=== PATIENT | female | born 1945 | race Caucasian/White ===

== ENCOUNTER 2016-05-31 20:16 | Emergency (ER) | payer BC, MEDICARE ==
[2016-05-31 21:41] LABS: Basophils % (Auto) 0.1 % (0.0-1.8); Eosinophils % (Auto) 0.3 % (0.0-4.3); Hematocrit 38.9 % (30.3-42.9); Hemoglobin 12.9 gm/dl (10.1-14.3); Mean Corpuscular HGB Conc 33 % (30-34); Mean Corpuscular Hemoglobin 30 pg (28-32); Mean Corpuscular Volume 89 fl (79-97); Platelet Count 256 K/mm3 (140-440); Red Blood Count 4.37 M/mm3 (3.65-5.03); Red Cell Distribution Width 12.9 % (13.2-15.2); White Blood Count 13.8 K/mm3 (4.5-11.0)
[2016-05-31 21:46] LABS: Alanine Aminotransferase 15 units/L (7-56); Albumin 4.5 g/dL (3.9-5); Albumin/Globulin Ratio 1.5 %; Alkaline Phosphatase 111 units/L (35-129); Anion Gap 20 mmol/L; Bilirubin,Total 0.5 mg/dL (0.1-1.2); Blood Urea Nitrogen 8 mg/dL (7-17); Calcium 9.1 mg/dL (8.4-10.2); Carbon Dioxide 25 mmol/L (22-30); Chloride 101.8 mmol/L (98-107); Glucose 155 mg/dL (65-100); Lipase 39 units/L (13-60); Potassium 3.4 mmol/L (3.6-5.0); Sodium 143 mmol/L (137-145); Total Protein 7.5 g/dL (6.3-8.2)
[2016-05-31 23:11] LABS: Bilirubin,Urine NEG (Negative); Blood,Urine LG (Negative); Ketones,Urine NEG (Negative); Leukocyte Esterase,Urine LG (Negative); Nitrite,Urine NEG (Negative); Urobilinogen,Urine < 2.0 mg/dL (<2.0)
[2016-05-31 23:14] LABS: RBC,Urine > 182.0 /HPF (0.0-6.0); WBC,Urine > 182.0 /HPF (0.0-6.0)
[2016-06-01] MEDS ORDERED: NACL 0.9% 1000 ML IV ONE (10:29)
[2016-06-01] MEDS ORDERED: ROCEPHIN/NS 1 GM/50 ML 50 ML IV ONE (10:29)
--- NOTE | 2016-06-01 10:34 | Emergency Department Report ---
HPI - General Chief Complaint: Abdominal Pain Time Seen by Provider: 06/01/16 10:20 - HPI HPI: Chief complaint: Dysuria, hematuria, frequency urgency HPI: Patient is a healthy 71-year-old [place] female states she began having dysuria and hematuria last night. Patient then states she felt hot and cold and had some suprapubic pain. Patient has some mild back pain diffuse. No flank pain. Patient denies any nausea or vomiting and currently has no abdominal pain. Mode of arrival: Private car Source: Patient and family member Began: Last night Duration: Continuous Context: No previous history of urinary tract infection Quality: Burning Severity: 4 out of 10 Improved with: Nothing Worsened with: Urination increases pain Associated signs and symptoms: See above ED Past Medical Hx - Medications Home Medications: Home Medications Medication Instructions Recorded Confirmed Last Taken Type Phenazopyridine [Pyridium] 100 mg PO Q8H PRN #10 tab 06/01/16 Unknown Rx Sulfamethoxazole/Trimethoprim 1 each PO BID #20 tablet 06/01/16 Unknown Rx [Bactrim DS TAB] ED Review of Systems ROS: Stated complaint: BLOOD IN URIN Other details as noted in HPI ROS Constitutional: No fever ENT: No uri symptoms Cardiovascular: No chest pain Respiratory: No sob or cough GI: No nausea vomiting or diarrhea : See HPI Skin: No rash Neuro: No focal weakness or numbness Psych: No depression Nathaniel/lymph: No edema Physical Exam - Physical Exam Vital Signs: Vital Signs 05/31/16 06/01/16 20:25 04:14 Temperature 97.2 F L 99.0 F Pulse Rate 121 H 90 Respiratory 18 14 Rate Blood Pressure 170/84 Blood Pressure 151/68 [Left] O2 Sat by Pulse 97 99 Oximetry Physical Exam: GENERAL: The patient is a thin elderly [place] female in no acute distress. HEENT: Normocephalic. Atraumatic. Extraocular motions are intact. Patient has moist mucous membranes. NECK: Supple. No meningitic signs are noted. There is no adenopathy noted. CHEST/LUNGS: Clear to auscultation. There is no respiratory distress noted. HEART/CARDIOVASCULAR: Regular. There is no tachycardia. There is no gallop rub or murmur. ABDOMEN: Abdomen is soft, nontender. Patient has normal bowel sounds. There is no abdominal distention. SKIN: There is no rash. There is no edema. There is no diaphoresis. NEURO: The patient is awake, alert, and oriented. The patient is cooperative. The patient has no focal neurologic deficits. The patient has normal speech. MUSCULOSKELETAL: There is no tenderness or deformity. There is no limitation range of motion. There is no evidence of acute injury. ED Course Vital Signs 05/31/16 06/01/16 20:25 04:14 Temperature 97.2 F L 99.0 F Pulse Rate 121 H 90 Respiratory 18 14 Rate Blood Pressure 170/84 Blood Pressure 151/68 [Left] O2 Sat by Pulse 97 99 Oximetry - Reevaluation(s) Reevaluation #1: 06/01/16 10:38 Patient given a liter normal saline and 1 g of IV Rocephin and will be discharged on Bactrim. ED Medical Decision Making - Lab Data Result diagrams: 05/31/16 21:03 05/31/16 21:03 Laboratory Tests 05/31/16 21:55 Urine Blood Lg Ur Leukocyte Esterase Lg Urine WBC (Auto) > 182.0 H Urine RBC (Auto) > 182.0 Critical care attestation.: If time is entered above; I have spent that time in minutes in the direct care of this critically ill patient, excluding procedure time. ED Disposition Clinical Impression: Urinary tract infection Qualifiers: Urinary tract infection type: acute cystitis Hematuria presence: with hematuria Qualified Code(s): N30.01 - Acute cystitis with hematuria Disposition: DISCHARGED TO HOME OR SELFCARE Is pt being admited?: No Does the pt Need Aspirin: No Condition: Stable Instructions: Urinary Tract Infection in Women (ED) Prescriptions: Phenazopyridine [Pyridium] 100 mg PO Q8H PRN #10 tab PRN Reason: Pain Sulfamethoxazole/Trimethoprim [Bactrim DS TAB] 1 each PO BID #20 tablet Referrals: FARRAH ZURITA MD [Primary Care Provider] - 7-10 days Time of Disposition: 10:41
[2016-06-01 12:54] VITALS: BP 151/76
== END 2016-06-01 12:35 | disposition home or self-care (01) ==
LOC: ED 20:16
DX: N30.01 Acute cystitis with hematuria (principal); N39.0 Urinary tract infection, site not specified
CPT/HCPCS: 36415; 80053; 81001; 83690; 85025; 87076; 87086; 87186; 93005; 93010; 96365; 99283; J0696; J7030

== ENCOUNTER 2018-01-26 00:20 | Inpatient (IN) | payer MEDICARE ==
[2018-01-26] MEDS ORDERED: NACL 0.9% 1000 ML 1,000 ML IV ONE ×4 (00:59→09:11)
[2018-01-26] MEDS ORDERED: ZOFRAN IV ONE (01:14)
[2018-01-26 01:16] LABS: Basophils % (Auto) 0.5 % (0.0-1.8); Eosinophils % (Auto) 0.1 % (0.0-4.3); Hematocrit 36.7 % (30.3-42.9); Hemoglobin 12.5 gm/dl (10.1-14.3); Lymphocytes # (Auto) 0.8 K/mm3 (1.2-5.4); Mean Corpuscular HGB Conc 34 % (30-34); Mean Corpuscular Hemoglobin 31 pg (28-32); Mean Corpuscular Volume 89 fl (79-97); Monocytes # (Auto) 0.4 K/mm3 (0.0-0.8); Monocytes % (Auto) 8.3 % (0.0-7.3); Platelet Count 340 K/mm3 (140-440); Red Blood Count 4.12 M/mm3 (3.65-5.03); Red Cell Distribution Width 13.6 % (13.2-15.2)
[2018-01-26 01:36] LABS: Alanine Aminotransferase 16 units/L (7-56); Albumin 3.9 g/dL (3.9-5); BUN/Creatinine Ratio 33; Blood Urea Nitrogen 13 mg/dL (7-17); Calcium 9.4 mg/dL (8.4-10.2); Hemolysis Index 0
--- NOTE | 2018-01-26 01:54 | Emergency Department Report ---
ED Abdominal Pain HPI - General Chief Complaint: Abdominal Pain Stated Complaint: VOMITING Time Seen by Provider: 01/26/18 01:01 Source: family, old records reviewed Mode of arrival: Stretcher Limitations: Language Barrier - History of Present Illness Initial Comments: 72-year-old female presents to the hospital with his daughter with complaints of postoperative abdominal pain, constipation, nausea and vomiting. Patient was admitted here for acalculous cholecystitis and had a laparoscopic cholecystectomy. She was discharged on the with Zofran, Percocet, and Tylenol. Despite this medication patient continues to have nausea and vomiting with by mouth intolerance the family has only given Zofran once a day over the last 2 days. She has not had a bowel movement since discharge from the hospital and complains of generalized 8/10 abdominal pain. Pain is worse with palpation. No fever reported. Surgeon: Dr. Sinclair - Related Data Previous Rx's Medication Instructions Recorded Last Taken Type Acetaminophen [Acetaminophen TAB] 650 mg PO Q4H PRN #15 tablet 01/22/18 Unknown Rx Ondansetron [Zofran Oral Liq] 4 mg PO Q4H PRN 5 Days #30 ml 01/22/18 Unknown Rx oxyCODONE /ACETAMINOPHEN [Percocet 1 tab PO Q6H PRN #8 tablet 01/22/18 Unknown Rx 5/325 mg] Allergies Allergy/AdvReac Type Severity Reaction Status Date / Time No Known Allergies Allergy Unverified 05/31/16 20:25 ED Review of Systems ROS: Stated complaint: VOMITING Other details as noted in HPI Comment: All other systems reviewed and negative ED Past Medical Hx - Past Medical History Previous Medical History?: No - Surgical History Past Surgical History?: Yes Hx Cholecystectomy: Yes - Social History Smoking Status: Never Smoker Substance Use Type: None - Medications Home Medications: Home Medications Medication Instructions Recorded Confirmed Last Taken Type Acetaminophen [Acetaminophen TAB] 650 mg PO Q4H PRN #15 tablet 01/22/18 Unknown Rx Ondansetron [Zofran Oral Liq] 4 mg PO Q4H PRN 5 Days #30 ml 01/22/18 Unknown Rx oxyCODONE /ACETAMINOPHEN [Percocet 1 tab PO Q6H PRN #8 tablet 01/22/18 Unknown Rx 5/325 mg] ED Physical Exam - General Limitations: Language Barrier - Other Other exam information: General: No limitations, patient is alert in no acute distress Head exam: Atraumatic, normocephalic Eyes exam: Normal appearance, nonicteric sclera ENT: Dry mucous membranes Neck exam: Normal inspection, full range of motion, no meningismus nontender Respiratory exam: Clear to auscultation bilateral, no wheezes, rales, crackles Cardiovascular: Normal rate and rhythm, normal heart sounds Abdomen: Soft, nondistended, recent laparoscopic scars noted without erythema. Generalized tenderness greatest in the lower abdomen. No rebound or guarding. Normal bowel sounds. Extremity: Full range of motion normal inspection no deformity Back: Normal Inspection, full range of motion, no tenderness Neurologic: Alert, oriented x3, cranial nerves intact, no motor or sensory deficit Psychiatric: normal affect, normal mood Skin: Warm, dry, intact ED Course Vital Signs 01/26/18 01/26/18 00:53 04:25 Temperature 97.6 F Pulse Rate 73 78 Respiratory 20 18 Rate Blood Pressure 133/62 Blood Pressure 162/78 [Left] O2 Sat by Pulse 97 97 Oximetry ED Medical Decision Making - Lab Data Result diagrams: 01/26/18 01:07 01/26/18 01:07 Lab Results 01/26/18 01/26/18 01/26/18 Range/Units 01:07 01:07 01:07 WBC 5.2 (4.5-11.0) K/mm3 RBC 4.12 (3.65-5.03) M/mm3 Hgb 12.5 (10.1-14.3) gm/dl Hct 36.7 (30.3-42.9) % MCV 89 (79-97) fl MCH 31 (28-32) pg MCHC 34 (30-34) % RDW 13.6 (13.2-15.2) % Plt Count 340 (140-440) K/mm3 Lymph % (Auto) 15.0 (13.4-35.0) % [place] % (Auto) 8.3 H (0.0-7.3) % Eos % (Auto) 0.1 (0.0-4.3) % Baso % (Auto) 0.5 (0.0-1.8) % Lymph # 0.8 L (1.2-5.4) K/mm3 [place] # 0.4 (0.0-0.8) K/mm3 Eos # 0.0 (0.0-0.4) K/mm3 Baso # 0.0 (0.0-0.1) K/mm3 Seg Neutrophils % 76.1 H (40.0-70.0) % Seg Neutrophils # 4.0 (1.8-7.7) K/mm3 Sodium 142 (137-145) mmol/L Potassium 2.7 L* (3.6-5.0) mmol/L Chloride 96.6 L (98-107) mmol/L Carbon Dioxide 25 D (22-30) mmol/L Anion Gap 23 mmol/L BUN 13 (7-17) mg/dL Creatinine 0.4 L (0.7-1.2) mg/dL Estimated GFR > 60 ml/min BUN/Creatinine Ratio 33 % Glucose 131 H (65-100) mg/dL Calcium 9.4 (8.4-10.2) mg/dL Magnesium (1.7-2.3) mg/dL Total Bilirubin 0.60 (0.1-1.2) mg/dL AST 17 (5-40) units/L ALT 16 (7-56) units/L Alkaline Phosphatase 90 (35-129) units/L Total Protein 7.4 (6.3-8.2) g/dL Albumin 3.9 (3.9-5) g/dL Albumin/Globulin Ratio 1.1 % Lipase 79 H (13-60) units/L Urine Color (Yellow) Urine Turbidity (Clear) Urine pH (5.0-7.0) Ur Specific [place] (1.003-1.030) Urine Protein (Negative) mg/dL Urine Glucose (UA) (Negative) mg/dL Urine Ketones (Negative) mg/dL Urine Blood (Negative) Urine Nitrite (Negative) Urine Bilirubin (Negative) Urine Urobilinogen (<2.0) mg/dL Ur Leukocyte Esterase (Negative) Urine WBC (Auto) (0.0-6.0) /HPF Urine RBC (Auto) (0.0-6.0) /HPF U Epithel Cells (Auto) (0-13.0) /HPF Urine Mucus /HPF 01/26/18 01/26/18 Range/Units 01:43 03:40 WBC (4.5-11.0) K/mm3 RBC (3.65-5.03) M/mm3 Hgb (10.1-14.3) gm/dl Hct (30.3-42.9) % MCV (79-97) fl MCH (28-32) pg MCHC (30-34) % RDW (13.2-15.2) % Plt Count (140-440) K/mm3 Lymph % (Auto) (13.4-35.0) % [place] % (Auto) (0.0-7.3) % Eos % (Auto) (0.0-4.3) % Baso % (Auto) (0.0-1.8) % Lymph # (1.2-5.4) K/mm3 [place] # (0.0-0.8) K/mm3 Eos # (0.0-0.4) K/mm3 Baso # (0.0-0.1) K/mm3 Seg Neutrophils % (40.0-70.0) % Seg Neutrophils # (1.8-7.7) K/mm3 Sodium (137-145) mmol/L Potassium (3.6-5.0) mmol/L Chloride (98-107) mmol/L Carbon Dioxide (22-30) mmol/L Anion Gap mmol/L BUN (7-17) mg/dL Creatinine (0.7-1.2) mg/dL Estimated GFR ml/min BUN/Creatinine Ratio % Glucose (65-100) mg/dL Calcium (8.4-10.2) mg/dL Magnesium 1.80 (1.7-2.3) mg/dL Total Bilirubin (0.1-1.2) mg/dL AST (5-40) units/L ALT (7-56) units/L Alkaline Phosphatase (35-129) units/L Total Protein (6.3-8.2) g/dL Albumin (3.9-5) g/dL Albumin/Globulin Ratio % Lipase (13-60) units/L Urine Color Yellow (Yellow) Urine Turbidity Clear (Clear) Urine pH 6.0 (5.0-7.0) Ur Specific [place] 1.038 H (1.003-1.030) Urine Protein <15 mg/dl (Negative) mg/dL Urine Glucose (UA) Neg (Negative) mg/dL Urine Ketones 80 (Negative) mg/dL Urine Blood Neg (Negative) Urine Nitrite Neg (Negative) Urine Bilirubin Neg (Negative) Urine Urobilinogen 2.0 (<2.0) mg/dL Ur Leukocyte Esterase Neg (Negative) Urine WBC (Auto) 1.0 (0.0-6.0) /HPF Urine RBC (Auto) 3.0 (0.0-6.0) /HPF U Epithel Cells (Auto) 1.0 (0-13.0) /HPF Urine Mucus 1+ /HPF - Radiology Data Radiology results: report reviewed FINAL REPORT PROCEDURE: CT ABDOMEN PELVIS W CON TECHNIQUE: Computerized axial tomography of the abdomen and pelvis was performed after the IV injection of iodinated nonionic contrast. HISTORY: post op (nilesh surg) constipation, n,v COMPARISON: 01/16/2018 FINDINGS: Visualized lower thorax: No significant abnormality. Liver: Normal size and attenuation. Spleen: Normal size and attenuation. Gallbladder and biliary system: Since the prior examination there has been cholecystectomy. Acute postoperative changes in the gallbladder fossa region are noted. Multiple surgical isaak are noted. There is a minimal amount of fluid with a few small foci of air this region. The common bile duct is slightly dilated. No stones are identified.. Pancreas: Normal. Adrenals: Normal. Kidneys: Normal. GI tract: No obstruction is seen. The cecum, appendix and colon are normal. There is moderate fecal debris in the rectum. Constipation is possible.. Lymph nodes and mesentery: Normal. Vasculature: Normal. Bladder: Normal. Reproductive organs: Normal. Peritoneum: No free fluid. Musculoskeletal structures: No significant abnormality. Other: None. IMPRESSION: Since prior examination there has been interval cholecystectomy. There are postoperative changes in the gallbladder fossa region including fluid and a few small foci of air in this region. The common bile duct is slightly dilated. No stones are identified. No evidence of intestinal urinary tract obstruction. The appendix is normal. Moderate fecal debris in the rectum may represent constipation. - Medical Decision Making She has dehydration as indicated by increased specific gravity and hypokalemia. IV potassium and an fluids initiated. Soapsuds initiated for constipation. Will admit patient to the hospital further treatment of dehydration and initially abnormalities and stabilization of nausea and vomiting. - Differential Diagnosis constipation, dehydration, electrolyte abnormality, postop infection Critical Care Time: No Critical care attestation.: If time is entered above; I have spent that time in minutes in the direct care of this critically ill patient, excluding procedure time. ED Disposition Clinical Impression: Constipation, Nausea and vomiting, Hypokalemia, Postoperative abdominal pain Disposition: [id number]-09 OP ADMIT IP TO THIS HOSP Is pt being admited?: Yes Condition: Stable Time of Disposition: 06:16 (DR Humphreys/hosp)
[2018-01-26] MEDS: KCL 10MEQ/100ML 10 MEQ/100 ML BAG IV SCH ×4 (02:25→13:16)
--- NOTE | 2018-01-26 03:07 | Cat Scan Report ---
FINAL REPORT PROCEDURE: CT ABDOMEN PELVIS W CON TECHNIQUE: Computerized axial tomography of the abdomen and pelvis was performed after the IV injection of iodinated nonionic contrast. HISTORY: post op (nilesh surg) constipation, n,v COMPARISON: 01/16/2018 FINDINGS: Visualized lower thorax: No significant abnormality. Liver: Normal size and attenuation. Spleen: Normal size and attenuation. Gallbladder and biliary system: Since the prior examination there has been cholecystectomy. Acute postoperative changes in the gallbladder fossa region are noted. Multiple surgical isaak are noted. There is a minimal amount of fluid with a few small foci of air this region. The common bile duct is slightly dilated. No stones are identified.. Pancreas: Normal. Adrenals: Normal. Kidneys: Normal. GI tract: No obstruction is seen. The cecum, appendix and colon are normal. There is moderate fecal debris in the rectum. Constipation is possible.. Lymph nodes and mesentery: Normal. Vasculature: Normal. Bladder: Normal. Reproductive organs: Normal. Peritoneum: No free fluid. Musculoskeletal structures: No significant abnormality. Other: None. IMPRESSION: Since prior examination there has been interval cholecystectomy. There are postoperative changes in the gallbladder fossa region including fluid and a few small foci of air in this region. The common bile duct is slightly dilated. No stones are identified. No evidence of intestinal urinary tract obstruction. The appendix is normal. Moderate fecal debris in the rectum may represent constipation.
[2018-01-26 03:55] LABS: Bilirubin,Urine NEG (Negative); Blood,Urine NEG (Negative); Color,Urine Yellow (Yellow); Mucus,Urine 1+ /HPF; Protein,Urine <15 mg/dL mg/dL (Negative)
[2018-01-26] MEDS ORDERED: ZOFRAN IV PRN (06:49)
[2018-01-26] MEDS ORDERED: DULCOLAX PR PRN (06:50)
[2018-01-26] MEDS ORDERED: MILK OF MAGNESIA PO PRN (06:51)
[2018-01-26 08:34] LABS: BUN/Creatinine Ratio 27; Blood Urea Nitrogen 8 mg/dL (7-17); Calcium 8.7 mg/dL (8.4-10.2); Hemolysis Index 2
[2018-01-26] MEDS ORDERED: K-DUR PO ONE (08:52)
[2018-01-26] MEDS ORDERED: NACL 0.9% 1000 ML 1,000 ML ONE (08:57)
[2018-01-26] MEDS: K-DUR PO ONE ×2 (09:03→09:06)
[2018-01-26] MEDS: NACL 0.9% 1000 ML 1,000 ML IV SCH ×2 (09:13→22:37)
[2018-01-26] MEDS ORDERED: KCL 10MEQ/100ML 10 MEQ/100 ML BAG IV SCH (10:00)
[2018-01-26] MEDS ORDERED: PHENERGAN PO PRN (11:51)
[2018-01-26] MEDS ORDERED: NORCO 5/325 PO PRN (11:54)
--- NOTE | 2018-01-26 11:59 | Progress Note ---
Assessment and Plan - Patient Problems (1) Nausea and vomiting Current Visit: Yes Status: Acute Plan to address problem: Pt stable. Her main issue is N/V. she got very dehydrated which contibuted to her having to return to ED. Now that she has gotten some fluid and had a bowel movement with the enema, she feels better. Abdominal pain is not a significant issue. She has very little pain. CT and LFTs unremarkable, except for stool in rectum. No signs of post-op complication. Rec: 1) Schedule Zofran while in hospital - ordered 2) liquid diet - need to make sure she can hydrate herself well before d/c home 3) Cont IVF for now 4) Replace K 5) Stool softener - ordered 6) ambulate Please call with questions. time=15min Subjective Date of service: 01/26/18 Patient Reports: Positive: feels better, pain is less, bowel movement (feels better after BM), other (returned due to N/V/constipation/abd pain) Objective Vital Signs - 12hr 01/26/18 01/26/18 01/26/18 00:53 04:25 05:30 Temperature 97.6 F 97.2 F L Pulse Rate 73 78 85 Respiratory 20 18 18 Rate Blood Pressure 133/62 Blood Pressure 162/78 168/85 [Left] O2 Sat by Pulse 97 97 96 Oximetry 01/26/18 01/26/18 01/26/18 06:20 07:38 07:55 Temperature 98.2 F 98.4 F Pulse Rate 81 74 Respiratory 21 15 15 Rate Blood Pressure Blood Pressure 164/76 163/73 [Left] O2 Sat by Pulse 96 98 Oximetry 01/26/18 09:52 Temperature 98.2 F Pulse Rate 79 Respiratory 18 Rate Blood Pressure Blood Pressure 171/81 [Left] O2 Sat by Pulse 95 Oximetry - General physical appearance no distress, no pain, other (smiling again. Appears tired) - Eyes normal occular movement - Respiratory normal expansion, normal respiratory effort - Abdomen soft, tender (minimal near the incisions - appropriate.), not distended, not guarding, not rigid, surgical scars (C/D/I) - Integumentary no rash, no growths, no abnormal pigmentation - Labs 01/26/18 01:07 01/26/18 07:38 Diabetes panel 01/26/18 01/26/18 Range/Units 01:07 07:38 Sodium 142 142 (137-145) mmol/L Potassium 2.7 L* 2.8 L* (3.6-5.0) mmol/L Chloride 96.6 L 104.1 (98-107) mmol/L Carbon Dioxide 25 D 22 (22-30) mmol/L BUN 13 8 (7-17) mg/dL Creatinine 0.4 L 0.3 L (0.7-1.2) mg/dL Glucose 131 H 104 H (65-100) mg/dL Calcium 9.4 8.7 (8.4-10.2) mg/dL AST 17 (5-40) units/L ALT 16 (7-56) units/L Alkaline Phosphatase 90 (35-129) units/L Total Protein 7.4 (6.3-8.2) g/dL Albumin 3.9 (3.9-5) g/dL Calcium panel 01/26/18 01/26/18 Range/Units 01:07 07:38 Calcium 9.4 8.7 (8.4-10.2) mg/dL Albumin 3.9 (3.9-5) g/dL Pituitary panel 01/26/18 01/26/18 Range/Units 01:07 07:38 Sodium 142 142 (137-145) mmol/L Potassium 2.7 L* 2.8 L* (3.6-5.0) mmol/L Chloride 96.6 L 104.1 (98-107) mmol/L Carbon Dioxide 25 D 22 (22-30) mmol/L BUN 13 8 (7-17) mg/dL Creatinine 0.4 L 0.3 L (0.7-1.2) mg/dL Glucose 131 H 104 H (65-100) mg/dL Calcium 9.4 8.7 (8.4-10.2) mg/dL Adrenal panel 01/26/18 01/26/18 Range/Units 01:07 07:38 Sodium 142 142 (137-145) mmol/L Potassium 2.7 L* 2.8 L* (3.6-5.0) mmol/L Chloride 96.6 L 104.1 (98-107) mmol/L Carbon Dioxide 25 D 22 (22-30) mmol/L BUN 13 8 (7-17) mg/dL Creatinine 0.4 L 0.3 L (0.7-1.2) mg/dL Glucose 131 H 104 H (65-100) mg/dL Calcium 9.4 8.7 (8.4-10.2) mg/dL Total Bilirubin 0.60 (0.1-1.2) mg/dL AST 17 (5-40) units/L ALT 16 (7-56) units/L Alkaline Phosphatase 90 (35-129) units/L Total Protein 7.4 (6.3-8.2) g/dL Albumin 3.9 (3.9-5) g/dL - Imaging CT scan - abdomen: report reviewed, image reviewed CT scan - pelvis: report reviewed, image reviewed
--- NOTE | 2018-01-26 12:38 | History and Physical Report ---
CHIEF COMPLAINT: Abdominal pain. Other complaint includes vomiting and constipation. HISTORY OF PRESENT ILLNESS: The patient is a 72-year-old female brought by the daughter to the Emergency Room because of abdominal pain. The patient had laparoscopic cholecystectomy done about 4-5 days ago and has been having constipation with abdominal pain, nausea, and vomiting. There is no history of fever, no history of chills, no history of shortness of breath, or chest pain. PAST MEDICAL HISTORY: Unremarkable. PAST SURGICAL HISTORY: Pertinent for cholecystectomy. FAMILY HISTORY: Noncontributory. SOCIAL HISTORY: The patient does not smoke, does not drink alcohol, and does not use illicit drugs. MEDICATIONS: The patient is on Tylenol 650 mg every 4 hours for fever and headache. The patient is on Zofran 4 mg every 4 hours for nausea and vomiting. Percocet 5/325 mg every 6 hours. ALLERGIES: There are no known drug allergies. REVIEW OF SYSTEMS: CONSTITUTIONAL: There is no fever, no chills, no diaphoresis. HEENT: There is no headache or sore throat. CARDIOVASCULAR: There is no chest pain or orthopnea. RESPIRATORY: There is no shortness of breath or cough. GASTROINTESTINAL: Abdominal pain noted. Nausea and vomiting noted. No diarrhea. Constipation noted. NEUROLOGICAL SYSTEM: There is no numbness, no dizziness. No altered mental status. MUSCULOSKELETAL SYSTEM: There is no joint pain or swelling. DERMATOLOGICAL SYSTEM: There is no skin rash or itching. GENITOURINARY SYSTEM: There is No dysuria, hematuria, or flank pain. Rest of system review is normal. PHYSICAL EXAMINATION: GENERAL: At the time of exam, the patient was found to be alert, oriented x 3, not in acute distress. VITAL SIGNS: Initially at the time of presentation shows temperature of 97.6 degrees Fahrenheit, pulse of 73, respirations 20, blood pressure 133/62, O2 sat of 97% on room air. HEENT: Shows pupils to be equal, round, reactive to light and accommodation. Extraocular muscles are intact. NECK: Supple with no JVD or carotid bruits. CARDIOVASCULAR SYSTEM: Showed normal first and second heart sounds with no gallops or murmurs. RESPIRATORY SYSTEM: Show good air entry on both sides of the lungs with no abnormal breath sounds. GASTROINTESTINAL SYSTEM: Show abdomen to be full, soft, nontender with no organomegaly or rigidity. NEUROLOGIC: Shows no focal deficit. MUSCULOSKELETAL: Show no joint swelling or tenderness. DERMATOLOGICAL: Show no skin rash. GENITOURINARY: Showing no costovertebral angle tenderness. PERTINENT LABORATORY AND IMAGING STUDIES: The patient had CBC done that came back unremarkable. Showed elevated segmented neutrophil CBC differential. The patient's chemistry showed low potassium level of 2.7 with elevated lipase level of 79. The patient's urinalysis was unremarkable except for high specific gravity of 1.038. The patient has CT of the abdomen and pelvis done without contrast and this shows postoperative changes in the gallbladder foci region including through and diffuse small foci of air in this region. The common bile duct is slightly dilated. No stones are identified. No evidence of intestinal, urinary tract or torsion in the appendix appears normal and there is moderate fecal debris in the rectum, which represents constipation. DIAGNOSES: 1. Hypokalemia. 2. Dehydration. 3. Constipation. PLAN: 1.The patient will be admitted to the medical floor on remote telemetry and will have potassium replacement by getting 40 mEq by mouth, also getting IV K-rider 10 mEq x 2 doses. 2.The patient will be on IV normal saline at 75 mL an hour, will be on IV Zofran 4 mg every 8 hours for nausea and vomiting. 3.The patient will be on milk of magnesia 30 mL daily for constipation and also be on Dulcolax suppository 10 mg one through the rectum daily as needed for constipation. 4.The patient's home medications will be started as shown in the medication reconciliation section. JOB# [id number] OCN/NTS
--- NOTE | 2018-01-26 12:46 | Event Note ---
Date: 01/26/18 Patient with laparoscopic choleystectomy discharged homwe 3 days ago on 01/23/18 presents with abdominal pain, vomiting. She was evaluated by Surgeon. Replace Potassium. Continue current management.
[2018-01-26] MEDS: ZOFRAN IV SCH ×2 (13:31→18:28)
[2018-01-26] MEDS: SENOKOT PO SCH (22:33)
[2018-01-27] MEDS: ZOFRAN IV SCH ×3 (00:18→12:10)
[2018-01-27 07:21] LABS: BUN/Creatinine Ratio 20; Blood Urea Nitrogen 6 mg/dL (7-17); Calcium 9.3 mg/dL (8.4-10.2); Hemolysis Index 0
[2018-01-27] MEDS: KCL 10MEQ/100ML 10 MEQ/100 ML BAG IV SCH ×4 (09:50→14:37)
--- NOTE | 2018-01-27 12:10 | Progress Note ---
Assessment and Plan - Patient Problems (1) Hypokalemia Current Visit: Yes Status: Acute Plan to address problem: Patient potassium 2.6. We'll correct IV today patient has improved somewhat since yesterday. (2) Nausea and vomiting Current Visit: Yes Status: Acute Plan to address problem: Patient has nausea and vomiting which is resolved. Was able to tolerate by mouth today. Still has hypokalemia will correct this prior to discharge. Patient does not appear to be dehydrated this time. She is however cachectic appearing thin small. Not sure of this are baseline. (3) Postoperative abdominal pain Current Visit: Yes Status: Acute Plan to address problem: Abdominal pain has resolved. Now just mostly gas. History Interval history: 72-year-old female status post laparoscopic cholecystectomy return to hospital with nausea vomiting dehydration and hypokalemia. Patient was admitted given IV volume replacement now, potassium corrected. Hospital course complicated by recent hypokalemia of 2.8. Patient at present states she feels a little better. Denies pain more weakness than anything. Hospitalist Physical - Constitutional Vitals: Temp Pulse Resp BP Pulse Ox 98.1 F 77 16 153/70 93 01/27/18 07:29 01/27/18 07:29 01/27/18 07:29 01/27/18 07:29 01/27/18 07:29 General appearance: Present: no acute distress, cachectic - EENT Eyes: Present: PERRL, EOM intact ENT: hearing intact, clear oral mucosa, dentition normal, poor dentition, no oropharyngeal erythema, no thrush, no edentulous - Neck Neck: Present: supple, normal ROM - Respiratory Respiratory: bilateral: CTA - Cardiovascular Rhythm: regular Heart Sounds: Present: S1 & S2 - Extremities Extremities: no ischemia, pulses intact, pulses symmetrical, No edema, normal temperature, normal color Peripheral Pulses: within normal limits - Abdominal General gastrointestinal: soft, non-tender, hypoactive bowel sounds, other ( scaphoid abdomen no splenomegaly.) - Psychiatric Psychiatric: appropriate mood/affect, intact judgment & insight - Neurologic Neurologic: CNII-XII intact, no focal deficits, moves all extremities Results - Labs CBC & Chem 7: 01/26/18 01:07 01/27/18 06:25 Labs: Laboratory Last Values WBC 5.2 K/mm3 (4.5-11.0) 01/26/18 01:07 RBC 4.12 M/mm3 (3.65-5.03) 01/26/18 01:07 Hgb 12.5 gm/dl (10.1-14.3) 01/26/18 01:07 Hct 36.7 % (30.3-42.9) 01/26/18 01:07 MCV 89 fl (79-97) 01/26/18 01:07 MCH 31 pg (28-32) 01/26/18 01:07 MCHC 34 % (30-34) 01/26/18 01:07 RDW 13.6 % (13.2-15.2) 01/26/18 01:07 Plt Count 340 K/mm3 (140-440) 01/26/18 01:07 Lymph % (Auto) 15.0 % (13.4-35.0) 01/26/18 01:07 [place] % (Auto) 8.3 % (0.0-7.3) H 01/26/18 01:07 Eos % (Auto) 0.1 % (0.0-4.3) 01/26/18 01:07 Baso % (Auto) 0.5 % (0.0-1.8) 01/26/18 01:07 Lymph # 0.8 K/mm3 (1.2-5.4) L 01/26/18 01:07 [place] # 0.4 K/mm3 (0.0-0.8) 01/26/18 01:07 Eos # 0.0 K/mm3 (0.0-0.4) 01/26/18 01:07 Baso # 0.0 K/mm3 (0.0-0.1) 01/26/18 01:07 Seg Neutrophils % 76.1 % (40.0-70.0) H 01/26/18 01:07 Seg Neutrophils # 4.0 K/mm3 (1.8-7.7) 01/26/18 01:07 Sodium 141 mmol/L (137-145) 01/27/18 06:25 Potassium 2.6 mmol/L (3.6-5.0) L* 01/27/18 06:25 Chloride 100.3 mmol/L (98-107) 01/27/18 06:25 Carbon Dioxide 21 mmol/L (22-30) L 01/27/18 06:25 Anion Gap 22 mmol/L 01/27/18 06:25 BUN 6 mg/dL (7-17) L 01/27/18 06:25 Creatinine 0.3 mg/dL (0.7-1.2) L 01/27/18 06:25 Estimated GFR > 60 ml/min 01/27/18 06:25 BUN/Creatinine Ratio 20 % 01/27/18 06:25 Glucose 98 mg/dL (65-100) 01/27/18 06:25 Calcium 9.3 mg/dL (8.4-10.2) 01/27/18 06:25 Magnesium 1.80 mg/dL (1.7-2.3) 01/26/18 01:43 Total Bilirubin 0.60 mg/dL (0.1-1.2) 01/26/18 01:07 AST 17 units/L (5-40) 01/26/18 01:07 ALT 16 units/L (7-56) 01/26/18 01:07 Alkaline Phosphatase 90 units/L (35-129) 01/26/18 01:07 Total Protein 7.4 g/dL (6.3-8.2) 01/26/18 01:07 Albumin 3.9 g/dL (3.9-5) 01/26/18 01:07 Albumin/Globulin Ratio 1.1 % 01/26/18 01:07 Lipase 79 units/L (13-60) H 01/26/18 01:07 Urine Color Yellow (Yellow) 01/26/18 03:40 Urine Turbidity Clear (Clear) 01/26/18 03:40 Urine pH 6.0 (5.0-7.0) 01/26/18 03:40 Ur Specific [place] 1.038 (1.003-1.030) H 01/26/18 03:40 Urine Protein <15 mg/dl mg/dL (Negative) 01/26/18 03:40 Urine Glucose (UA) Neg mg/dL (Negative) 01/26/18 03:40 Urine Ketones 80 mg/dL (Negative) 01/26/18 03:40 Urine Blood Neg (Negative) 01/26/18 03:40 Urine Nitrite Neg (Negative) 01/26/18 03:40 Urine Bilirubin Neg (Negative) 01/26/18 03:40 Urine Urobilinogen 2.0 mg/dL (<2.0) 01/26/18 03:40 Ur Leukocyte Esterase Neg (Negative) 01/26/18 03:40 Urine WBC (Auto) 1.0 /HPF (0.0-6.0) 01/26/18 03:40 Urine RBC (Auto) 3.0 /HPF (0.0-6.0) 01/26/18 03:40 U Epithel Cells (Auto) 1.0 /HPF (0-13.0) 01/26/18 03:40 Urine Mucus 1+ /HPF 01/26/18 03:40
[2018-01-27] MEDS: NACL 0.9% 1000 ML 1,000 ML IV SCH (12:20)
[2018-01-27] MEDS ORDERED: ZOFRAN IV PRN (13:35)
--- NOTE | 2018-01-27 13:40 | Progress Note ---
Assessment and Plan - Patient Problems (1) Nausea and vomiting Current Visit: Yes Status: Acute Plan to address problem: Pt stable. Her main issue is N/V. she got very dehydrated which contibuted to her having to return to ED. Now that she has gotten some fluid and had a bowel movement with the enema, she feels better. Abdominal pain is not a significant issue. She has very little pain. CT and LFTs unremarkable, except for stool in rectum. No signs of post-op complication. (01/26) Today, still have N/V. Pain is essentially resolved. Now with productive cough. Nausea med does not appear to be helping much. also having reflux symptoms. Rec: 1) change scheduled nausea med to phenergan - done. 2) Pt would like bland diet - will order soft bland diet - need to make sure she can hydrate herself well before d/c home 3) Cont IVF for now 4) Replace K 5) Stool softener - ordered 6) ambulate 7) will check CXR for new cough Please call with questions. time=10min Subjective Date of service: 01/27/18 Patient Reports: Positive: pain is less, nausea, vomiting, other (productive cough since yesterday afternoon) Objective Vital Signs - 12hr 01/27/18 01/27/18 01/27/18 02:14 07:29 10:00 Temperature 98.0 F 98.1 F Pulse Rate 78 77 Pulse Rate [ 77 Left Apical] Respiratory 18 16 Rate Blood Pressure 149/66 153/70 O2 Sat by Pulse 93 93 Oximetry - General physical appearance no distress, no pain, other (appears weak. smiling) - Respiratory normal expansion, normal respiratory effort - Abdomen soft, not tender, not distended - Labs 01/26/18 01:07 01/27/18 06:25 Diabetes panel 01/27/18 Range/Units 06:25 Sodium 141 (137-145) mmol/L Potassium 2.6 L* (3.6-5.0) mmol/L Chloride 100.3 (98-107) mmol/L Carbon Dioxide 21 L (22-30) mmol/L BUN 6 L (7-17) mg/dL Creatinine 0.3 L (0.7-1.2) mg/dL Glucose 98 (65-100) mg/dL Calcium 9.3 (8.4-10.2) mg/dL Calcium panel 01/27/18 Range/Units 06:25 Calcium 9.3 (8.4-10.2) mg/dL Pituitary panel 01/27/18 Range/Units 06:25 Sodium 141 (137-145) mmol/L Potassium 2.6 L* (3.6-5.0) mmol/L Chloride 100.3 (98-107) mmol/L Carbon Dioxide 21 L (22-30) mmol/L BUN 6 L (7-17) mg/dL Creatinine 0.3 L (0.7-1.2) mg/dL Glucose 98 (65-100) mg/dL Calcium 9.3 (8.4-10.2) mg/dL Adrenal panel 01/27/18 Range/Units 06:25 Sodium 141 (137-145) mmol/L Potassium 2.6 L* (3.6-5.0) mmol/L Chloride 100.3 (98-107) mmol/L Carbon Dioxide 21 L (22-30) mmol/L BUN 6 L (7-17) mg/dL Creatinine 0.3 L (0.7-1.2) mg/dL Glucose 98 (65-100) mg/dL Calcium 9.3 (8.4-10.2) mg/dL
[2018-01-27] MEDS: PEPCID PO SCH ×2 (13:52→22:23)
--- NOTE | 2018-01-27 15:21 | XRay Report ---
ROUTINE CHEST, TWO VIEWS: HISTORY: Productive cough. The trachea, heart, mediastinal contour, lung zee and bony thorax are unremarkable. IMPRESSION: No acute cardiopulmonary process.
[2018-01-27] MEDS: PHENERGAN PO SCH (17:26)
[2018-01-27] MEDS: SENOKOT PO SCH (22:23)
[2018-01-28] MEDS: PHENERGAN PO SCH ×2 (00:21→05:17)
[2018-01-28] MEDS: NACL 0.9% 1000 ML 1,000 ML IV SCH ×2 (00:22→15:01)
[2018-01-28 08:21] LABS: BUN/Creatinine Ratio 17; Blood Urea Nitrogen 5 mg/dL (7-17); Hemolysis Index 1
[2018-01-28] MEDS: PEPCID PO SCH (08:59)
[2018-01-28] MEDS ORDERED: KCL 10MEQ/100ML 10 MEQ/100 ML BAG IV ONE ×4 (09:00→18:00)
[2018-01-28] MEDS: ZOFRAN IV SCH ×3 (10:22→22:24)
[2018-01-28] MEDS: PEPCID IV SCH ×2 (10:22→22:25)
--- NOTE | 2018-01-28 10:45 | Progress Note ---
Assessment and Plan - Patient Problems (1) Nausea and vomiting Current Visit: Yes Status: Acute Plan to address problem: Pt stable. Her main issue is N/V. she got very dehydrated which contibuted to her having to return to ED. Now that she has gotten some fluid and had a bowel movement with the enema, she feels better. Abdominal pain is not a significant issue. She has very little pain. CT and LFTs unremarkable, except for stool in rectum. No signs of post-op complication. (01/26) Today, still have N/V, but may be improving. Pain is essentially resolved. Having reflux symptoms. Having difficulty with pills contributing to nausea. CXR neg Rec: 1) change phenergan to [place] and add scheduled zofran IV 2) Pt would like bland diet - will cont soft bland diet - need to make sure she can hydrate herself well before d/c home 3) Cont IVF for now 4) Replace K - may be remaining low due to unresolved vomiting and senna. Will d /c senna 5) Stool softener - d/c'd due to #4 6) ambulate Discussed with Dr. Coyne. Please call with questions. time=10min Subjective Date of service: 01/28/18 Patient Reports: Positive: feels better, nausea, vomiting, other (daughter reports that she slept better last night and the nausea seems a little better) Objective Vital Signs - 12hr 01/28/18 01/28/18 03:09 07:33 Temperature 98.0 F 98.0 F Pulse Rate 76 75 Respiratory 16 18 Rate Blood Pressure 127/65 150/79 O2 Sat by Pulse 97 96 Oximetry - General physical appearance no distress, no pain, other (Appears weak but seems to have a little more energy in her face today) - Respiratory normal expansion, normal respiratory effort - Abdomen soft, not tender, not distended, surgical scars (C/D/I) - Labs 01/26/18 01:07 01/28/18 07:49 Diabetes panel 01/28/18 Range/Units 07:49 Sodium 138 (137-145) mmol/L Potassium 2.6 L* (3.6-5.0) mmol/L Chloride 97.9 L (98-107) mmol/L Carbon Dioxide 26 (22-30) mmol/L BUN 5 L (7-17) mg/dL Creatinine 0.3 L (0.7-1.2) mg/dL Glucose 97 (65-100) mg/dL Calcium 9.0 (8.4-10.2) mg/dL Calcium panel 01/28/18 Range/Units 07:49 Calcium 9.0 (8.4-10.2) mg/dL Pituitary panel 01/28/18 Range/Units 07:49 Sodium 138 (137-145) mmol/L Potassium 2.6 L* (3.6-5.0) mmol/L Chloride 97.9 L (98-107) mmol/L Carbon Dioxide 26 (22-30) mmol/L BUN 5 L (7-17) mg/dL Creatinine 0.3 L (0.7-1.2) mg/dL Glucose 97 (65-100) mg/dL Calcium 9.0 (8.4-10.2) mg/dL Adrenal panel 01/28/18 Range/Units 07:49 Sodium 138 (137-145) mmol/L Potassium 2.6 L* (3.6-5.0) mmol/L Chloride 97.9 L (98-107) mmol/L Carbon Dioxide 26 (22-30) mmol/L BUN 5 L (7-17) mg/dL Creatinine 0.3 L (0.7-1.2) mg/dL Glucose 97 (65-100) mg/dL Calcium 9.0 (8.4-10.2) mg/dL
--- NOTE | 2018-01-28 12:05 | Progress Note ---
Assessment and Plan Assessment and plan: Hypokalemia Patient potassium 2.6. We'll correct IV today patient has improved somewhat since yesterday. Nausea and vomiting Patient has nausea and vomiting which is resolved except for one episode this morning. Was able to tolerate by mouth today. Still has hypokalemia will correct this prior to discharge. Patient does not appear to be dehydrated this time. She is however cachectic appearing thin small. Not sure of this are baseline. Postoperative abdominal pain Abdominal pain has resolved. I discussed the case with surgery. Likely DC in a.m. History Interval history: Family reports nausea is better with vomiting 1 Hospitalist Physical - Constitutional Vitals: Temp Pulse Resp BP Pulse Ox 98.0 F 72 18 150/79 96 01/28/18 07:33 01/28/18 10:00 01/28/18 07:33 01/28/18 07:33 01/28/18 10:00 General appearance: Present: no acute distress, cachectic - EENT Eyes: Present: PERRL, EOM intact ENT: hearing intact, clear oral mucosa, dentition normal - Neck Neck: Present: supple, normal ROM - Respiratory Respiratory effort: normal Respiratory: bilateral: CTA - Cardiovascular Rhythm: regular Heart Sounds: Present: S1 & S2. Absent: gallop, rub - Extremities Extremities: no ischemia, No edema, Full ROM - Abdominal General gastrointestinal: soft, non-tender, non-distended, normal bowel sounds - Integumentary Integumentary: Present: clear, warm, dry - Neurologic Neurologic: CNII-XII intact, moves all extremities Results - Labs CBC & Chem 7: 01/26/18 01:07 01/28/18 07:49 Labs: Laboratory Last Values WBC 5.2 K/mm3 (4.5-11.0) 01/26/18 01:07 RBC 4.12 M/mm3 (3.65-5.03) 01/26/18 01:07 Hgb 12.5 gm/dl (10.1-14.3) 01/26/18 01:07 Hct 36.7 % (30.3-42.9) 01/26/18 01:07 MCV 89 fl (79-97) 01/26/18 01:07 MCH 31 pg (28-32) 01/26/18 01:07 MCHC 34 % (30-34) 01/26/18 01:07 RDW 13.6 % (13.2-15.2) 01/26/18 01:07 Plt Count 340 K/mm3 (140-440) 01/26/18 01:07 Lymph % (Auto) 15.0 % (13.4-35.0) 01/26/18 01:07 [place] % (Auto) 8.3 % (0.0-7.3) H 01/26/18 01:07 Eos % (Auto) 0.1 % (0.0-4.3) 01/26/18 01:07 Baso % (Auto) 0.5 % (0.0-1.8) 01/26/18 01:07 Lymph # 0.8 K/mm3 (1.2-5.4) L 01/26/18 01:07 [place] # 0.4 K/mm3 (0.0-0.8) 01/26/18 01:07 Eos # 0.0 K/mm3 (0.0-0.4) 01/26/18 01:07 Baso # 0.0 K/mm3 (0.0-0.1) 01/26/18 01:07 Seg Neutrophils % 76.1 % (40.0-70.0) H 01/26/18 01:07 Seg Neutrophils # 4.0 K/mm3 (1.8-7.7) 01/26/18 01:07 Sodium 138 mmol/L (137-145) 01/28/18 07:49 Potassium 2.6 mmol/L (3.6-5.0) L* 01/28/18 07:49 Chloride 97.9 mmol/L (98-107) L 01/28/18 07:49 Carbon Dioxide 26 mmol/L (22-30) 01/28/18 07:49 Anion Gap 17 mmol/L 01/28/18 07:49 BUN 5 mg/dL (7-17) L 01/28/18 07:49 Creatinine 0.3 mg/dL (0.7-1.2) L 01/28/18 07:49 Estimated GFR > 60 ml/min 01/28/18 07:49 BUN/Creatinine Ratio 17 % 01/28/18 07:49 Glucose 97 mg/dL (65-100) 01/28/18 07:49 Calcium 9.0 mg/dL (8.4-10.2) 01/28/18 07:49 Magnesium 1.80 mg/dL (1.7-2.3) 01/26/18 01:43 Total Bilirubin 0.60 mg/dL (0.1-1.2) 01/26/18 01:07 AST 17 units/L (5-40) 01/26/18 01:07 ALT 16 units/L (7-56) 01/26/18 01:07 Alkaline Phosphatase 90 units/L (35-129) 01/26/18 01:07 Total Protein 7.4 g/dL (6.3-8.2) 01/26/18 01:07 Albumin 3.9 g/dL (3.9-5) 01/26/18 01:07 Albumin/Globulin Ratio 1.1 % 01/26/18 01:07 Lipase 79 units/L (13-60) H 01/26/18 01:07 Urine Color Yellow (Yellow) 01/26/18 03:40 Urine Turbidity Clear (Clear) 01/26/18 03:40 Urine pH 6.0 (5.0-7.0) 01/26/18 03:40 Ur Specific [place] 1.038 (1.003-1.030) H 01/26/18 03:40 Urine Protein <15 mg/dl mg/dL (Negative) 01/26/18 03:40 Urine Glucose (UA) Neg mg/dL (Negative) 01/26/18 03:40 Urine Ketones 80 mg/dL (Negative) 01/26/18 03:40 Urine Blood Neg (Negative) 01/26/18 03:40 Urine Nitrite Neg (Negative) 01/26/18 03:40 Urine Bilirubin Neg (Negative) 01/26/18 03:40 Urine Urobilinogen 2.0 mg/dL (<2.0) 01/26/18 03:40 Ur Leukocyte Esterase Neg (Negative) 01/26/18 03:40 Urine WBC (Auto) 1.0 /HPF (0.0-6.0) 01/26/18 03:40 Urine RBC (Auto) 3.0 /HPF (0.0-6.0) 01/26/18 03:40 U Epithel Cells (Auto) 1.0 /HPF (0-13.0) 01/26/18 03:40 Urine Mucus 1+ /HPF 01/26/18 03:40
[2018-01-28] MEDS: PHENERGAN PR SCH ×3 (12:46→23:27)
[2018-01-29] MEDS: ZOFRAN IV SCH ×4 (05:00→21:58)
[2018-01-29 05:13] LABS: BUN/Creatinine Ratio 25; Blood Urea Nitrogen 5 mg/dL (7-17); Calcium 8.6 mg/dL (8.4-10.2); Hemolysis Index 23
[2018-01-29] MEDS: NACL 0.9% 1000 ML 1,000 ML IV SCH ×2 (05:31→17:09)
[2018-01-29] MEDS: PHENERGAN PR SCH ×3 (05:32→17:00)
[2018-01-29] MEDS: KCL 10MEQ/100ML 10 MEQ/100 ML BAG IV SCH ×4 (07:09→10:50)
[2018-01-29] MEDS ORDERED: K-DUR PO NR ×2 (09:00→12:00)
[2018-01-29] MEDS ORDERED: KCL 10MEQ/100ML 10 MEQ/100 ML BAG IV NR ×2 (09:00→12:00)
--- NOTE | 2018-01-29 09:31 | Progress Note ---
Assessment and Plan Assessment and plan: Hypokalemia Patient potassium 2.7. We'll correct IV today as well as po. Check Mg Nausea and vomiting Patient has nausea and vomiting which is resolved except for one episode this morning. Was able to tolerate by mouth today. Still has hypokalemia will correct this prior to discharge. Patient does not appear to be dehydrated this time. She is however cachectic appearing thin small. Not sure of this are baseline. Postoperative abdominal pain Abdominal pain has resolved. I discussed the case with surgery. Likely DC in a.m. History Interval history: Family reports nausea is better Hospitalist Physical - Constitutional Vitals: Temp Pulse Resp BP Pulse Ox 97.5 F L 80 16 123/71 95 01/29/18 02:41 01/29/18 02:41 01/29/18 02:41 01/29/18 02:41 01/29/18 02:41 General appearance: Present: no acute distress, cachectic - EENT Eyes: Present: PERRL, EOM intact ENT: hearing intact, clear oral mucosa, dentition normal - Neck Neck: Present: supple, normal ROM - Respiratory Respiratory effort: normal Respiratory: bilateral: CTA - Cardiovascular Rhythm: regular Heart Sounds: Present: S1 & S2. Absent: gallop, rub - Extremities Extremities: no ischemia, No edema, Full ROM - Abdominal General gastrointestinal: soft, non-tender, non-distended, normal bowel sounds - Integumentary Integumentary: Present: clear, warm, dry - Neurologic Neurologic: CNII-XII intact, moves all extremities Results - Labs CBC & Chem 7: 01/26/18 01:07 01/29/18 04:15 Labs: Laboratory Last Values WBC 5.2 K/mm3 (4.5-11.0) 01/26/18 01:07 RBC 4.12 M/mm3 (3.65-5.03) 01/26/18 01:07 Hgb 12.5 gm/dl (10.1-14.3) 01/26/18 01:07 Hct 36.7 % (30.3-42.9) 01/26/18 01:07 MCV 89 fl (79-97) 01/26/18 01:07 MCH 31 pg (28-32) 01/26/18 01:07 MCHC 34 % (30-34) 01/26/18 01:07 RDW 13.6 % (13.2-15.2) 01/26/18 01:07 Plt Count 340 K/mm3 (140-440) 01/26/18 01:07 Lymph % (Auto) 15.0 % (13.4-35.0) 01/26/18 01:07 [place] % (Auto) 8.3 % (0.0-7.3) H 01/26/18 01:07 Eos % (Auto) 0.1 % (0.0-4.3) 01/26/18 01:07 Baso % (Auto) 0.5 % (0.0-1.8) 01/26/18 01:07 Lymph # 0.8 K/mm3 (1.2-5.4) L 01/26/18 01:07 [place] # 0.4 K/mm3 (0.0-0.8) 01/26/18 01:07 Eos # 0.0 K/mm3 (0.0-0.4) 01/26/18 01:07 Baso # 0.0 K/mm3 (0.0-0.1) 01/26/18 01:07 Seg Neutrophils % 76.1 % (40.0-70.0) H 01/26/18 01:07 Seg Neutrophils # 4.0 K/mm3 (1.8-7.7) 01/26/18 01:07 Sodium 138 mmol/L (137-145) 01/29/18 04:15 Potassium 2.7 mmol/L (3.6-5.0) L* 01/29/18 04:15 Chloride 96.6 mmol/L (98-107) L 01/29/18 04:15 Carbon Dioxide 25 mmol/L (22-30) 01/29/18 04:15 Anion Gap 19 mmol/L 01/29/18 04:15 BUN 5 mg/dL (7-17) L 01/29/18 04:15 Creatinine 0.2 mg/dL (0.7-1.2) L 01/29/18 04:15 Estimated GFR > 60 ml/min 01/29/18 04:15 BUN/Creatinine Ratio 25 % 01/29/18 04:15 Glucose 85 mg/dL (65-100) 01/29/18 04:15 Calcium 8.6 mg/dL (8.4-10.2) 01/29/18 04:15 Magnesium 1.80 mg/dL (1.7-2.3) 01/26/18 01:43 Total Bilirubin 0.60 mg/dL (0.1-1.2) 01/26/18 01:07 AST 17 units/L (5-40) 01/26/18 01:07 ALT 16 units/L (7-56) 01/26/18 01:07 Alkaline Phosphatase 90 units/L (35-129) 01/26/18 01:07 Total Protein 7.4 g/dL (6.3-8.2) 01/26/18 01:07 Albumin 3.9 g/dL (3.9-5) 01/26/18 01:07 Albumin/Globulin Ratio 1.1 % 01/26/18 01:07 Lipase 79 units/L (13-60) H 01/26/18 01:07 Urine Color Yellow (Yellow) 01/26/18 03:40 Urine Turbidity Clear (Clear) 01/26/18 03:40 Urine pH 6.0 (5.0-7.0) 01/26/18 03:40 Ur Specific [place] 1.038 (1.003-1.030) H 01/26/18 03:40 Urine Protein <15 mg/dl mg/dL (Negative) 01/26/18 03:40 Urine Glucose (UA) Neg mg/dL (Negative) 01/26/18 03:40 Urine Ketones 80 mg/dL (Negative) 01/26/18 03:40 Urine Blood Neg (Negative) 01/26/18 03:40 Urine Nitrite Neg (Negative) 01/26/18 03:40 Urine Bilirubin Neg (Negative) 01/26/18 03:40 Urine Urobilinogen 2.0 mg/dL (<2.0) 01/26/18 03:40 Ur Leukocyte Esterase Neg (Negative) 01/26/18 03:40 Urine WBC (Auto) 1.0 /HPF (0.0-6.0) 01/26/18 03:40 Urine RBC (Auto) 3.0 /HPF (0.0-6.0) 01/26/18 03:40 U Epithel Cells (Auto) 1.0 /HPF (0-13.0) 01/26/18 03:40 Urine Mucus 1+ /HPF 01/26/18 03:40
[2018-01-29] MEDS: PEPCID PO SCH ×2 (09:35→21:58)
[2018-01-29] MEDS: REGLAN IV PRN ×2 (09:40→16:57)
--- NOTE | 2018-01-29 10:17 | Progress Note ---
Assessment and Plan - Patient Problems (1) Nausea and vomiting Current Visit: Yes Status: Acute Plan to address problem: Pt stable. Her main issue is N/V. she got very dehydrated which contibuted to her having to return to ED. Now that she has gotten some fluid and had a bowel movement with the enema, she feels better. Abdominal pain is not a significant issue. She has very little pain. CT and LFTs unremarkable, except for stool in rectum. No signs of post-op complication. (01/26) Today, still have N/V, but improving. Took in more PO yesterday. Pain is essentially resolved. Rec: 1) Cont scheduled phenergan and zofran 2) Pt would like bland diet - will cont soft bland diet - need to make sure she can hydrate herself well before d/c home 3) Cont IVF for now 4) Replace K - may be remaining low due to unresolved vomiting and senna. senna d/c'd 5) Stool softener - d/c'd due to #4. Pt would like prn enema 6) ambulate Discussed with Dr. Coyne. Please call with questions. time=10min Subjective Date of service: 01/29/18 Patient Reports: Positive: feels better, tolerating liquids well, no bowel movement, nausea (less so), vomiting (less. Good all day. Had small amount of spit at night. ) Objective Vital Signs - 12hr 01/29/18 02:41 Temperature 97.5 F L Pulse Rate 80 Respiratory 16 Rate Blood Pressure 123/71 O2 Sat by Pulse 95 Oximetry - General physical appearance no distress, no pain, other (looks better. Seems to have more energy) - Respiratory normal expansion, normal respiratory effort - Abdomen soft, not tender, not distended - Labs 01/26/18 01:07 01/29/18 04:15 Diabetes panel 01/29/18 Range/Units 04:15 Sodium 138 (137-145) mmol/L Potassium 2.7 L* (3.6-5.0) mmol/L Chloride 96.6 L (98-107) mmol/L Carbon Dioxide 25 (22-30) mmol/L BUN 5 L (7-17) mg/dL Creatinine 0.2 L (0.7-1.2) mg/dL Glucose 85 (65-100) mg/dL Calcium 8.6 (8.4-10.2) mg/dL Calcium panel 01/29/18 Range/Units 04:15 Calcium 8.6 (8.4-10.2) mg/dL Pituitary panel 01/29/18 Range/Units 04:15 Sodium 138 (137-145) mmol/L Potassium 2.7 L* (3.6-5.0) mmol/L Chloride 96.6 L (98-107) mmol/L Carbon Dioxide 25 (22-30) mmol/L BUN 5 L (7-17) mg/dL Creatinine 0.2 L (0.7-1.2) mg/dL Glucose 85 (65-100) mg/dL Calcium 8.6 (8.4-10.2) mg/dL Adrenal panel 01/29/18 Range/Units 04:15 Sodium 138 (137-145) mmol/L Potassium 2.7 L* (3.6-5.0) mmol/L Chloride 96.6 L (98-107) mmol/L Carbon Dioxide 25 (22-30) mmol/L BUN 5 L (7-17) mg/dL Creatinine 0.2 L (0.7-1.2) mg/dL Glucose 85 (65-100) mg/dL Calcium 8.6 (8.4-10.2) mg/dL
[2018-01-29] MEDS ORDERED: FLEET PR PRN (12:15)
[2018-01-29 22:01] LABS: BUN/Creatinine Ratio 13; Blood Urea Nitrogen 4 mg/dL (7-17); Calcium 8.8 mg/dL (8.4-10.2); Hemolysis Index 7
[2018-01-30] MEDS: PHENERGAN PR SCH ×2 (00:40→06:18)
[2018-01-30] MEDS: ZOFRAN IV SCH ×4 (04:51→22:02)
[2018-01-30 05:25] LABS: Basophils % (Auto) 0.4 % (0.0-1.8); Eosinophils # (Auto) 0.2 K/mm3 (0.0-0.4); Eosinophils % (Auto) 2.3 % (0.0-4.3); Hematocrit 36.3 % (30.3-42.9); Hemoglobin 12.2 gm/dl (10.1-14.3); Lymphocytes # (Auto) 1.4 K/mm3 (1.2-5.4); Lymphocytes % (Auto) 19.7 % (13.4-35.0); Mean Corpuscular HGB Conc 34 % (30-34); Mean Corpuscular Hemoglobin 30 pg (28-32); Mean Corpuscular Volume 89 fl (79-97); Monocytes # (Auto) 0.6 K/mm3 (0.0-0.8); Monocytes % (Auto) 7.6 % (0.0-7.3); Platelet Count 335 K/mm3 (140-440); Red Blood Count 4.09 M/mm3 (3.65-5.03); Red Cell Distribution Width 13.6 % (13.2-15.2)
[2018-01-30 05:49] LABS: BUN/Creatinine Ratio 13; Blood Urea Nitrogen 4 mg/dL (7-17); Calcium 8.8 mg/dL (8.4-10.2); Hemolysis Index 5
[2018-01-30] MEDS: NACL 0.9% 1000 ML 1,000 ML IV SCH (06:15)
--- NOTE | 2018-01-30 08:20 | Discharge Summary ---
Providers - Providers Date of Admission: 01/26/18 06:50 Date of discharge: 01/31/18 Attending physician: ROBERTO SYED 01/26/18 08:39 Consult to Physician [CONS] Routine Comment: called answ. [email or web address] Consulting Provider: SHERYL NOLEN Physician Instructions: Reason For Exam: Abdominal pain, recent cholectstectomy Primary care physician: [employer] Hospitalization Reason for admission: n/V/abd pain Condition: Stable Hospital course: This is a 72-year-old female presented with chief complaint of nausea or vomiting. Patient reportedly was admitted here for acalculous cholecystitis and had a laparoscopic cholecystectomy. She was discharged on the with Zofran, Percocet, and Tylenol. Despite this medication patient continues to have nausea and vomiting with by mouth intolerance. She had not had a bowel movement since discharge from the hospital and complained of generalized 8/10 abdominal pain. The patient was seen by surgery in consultation and was felt to have been very dehydrated which contributed to her admission to the emergency department. The patient received IV fluid hydration and had a bowel movement with him and felt much better. Surgery felt that the abdominal pain was not a significant issue. CT scan LFTs were unremarkable except for stool in the rectum. Patient had no signs of postop complications. Patient was noted to have significant hypokalemia and hypomagnesemia which was repleted. Patient's diet was advanced which she tolerated. Patient is otherwise stable and will be discharged home. Dedicated discharge time 32 minutes. Disposition: DC-01 TO HOME OR SELFCARE Time spent for discharge: 32 Core Measure Documentation - Palliative Care Palliative Care/ Comfort Measures: Not Applicable - Core Measures Any of the following diagnoses?: none Exam - Constitutional Vitals: Temp Pulse Resp BP Pulse Ox 98.0 F 85 20 154/70 94 01/30/18 07:27 01/30/18 07:27 01/30/18 07:27 01/30/18 07:27 01/30/18 07:27 General appearance: Present: no acute distress, well-nourished - EENT Eyes: Present: PERRL ENT: hearing intact, clear oral mucosa - Neck Neck: Present: supple, normal ROM - Respiratory Respiratory effort: normal Respiratory: bilateral: CTA - Cardiovascular Heart Sounds: Present: S1 & S2. Absent: rub, click - Extremities Extremities: pulses symmetrical, No edema Peripheral Pulses: within normal limits - Abdominal General gastrointestinal: Present: soft, non-tender, non-distended, normal bowel sounds Female genitourinary: Present: normal - Integumentary Integumentary: Present: clear, warm, dry - Musculoskeletal Musculoskeletal: gait normal, strength equal bilaterally - Psychiatric Psychiatric: appropriate mood/affect, intact judgment & insight - Neurologic Neurologic: CNII-XII intact, moves all extremities Plan Activity: no restrictions Weight Bearing Status: Full Weight Bearing Diet: regular Follow up with: PRIMARY MD RYAN [Primary Care Provider] - 7 Days SHERYL NOLEN MD [Staff Physician] - 7 Days Prescriptions: Bisacodyl [Dulcolax suppos] 10 mg LA QDAY PRN #10 supp.rect PRN Reason: Constipation Famotidine [Pepcid] 20 mg PO BID #60 tablet Ondansetron [Zofran ORAL LIQ] 4 mg PO Q4H PRN 5 Days #30 ml PRN Reason: Nausea Promethazine [Phenergan SUPPOS] 6.25 mg LA Q6H #10 supp.rect
[2018-01-30] MEDS ORDERED: K-DUR PO NR (09:00)
[2018-01-30] MEDS ORDERED: MAGNESIUM SULFATE 2GM/50ML 2 GM/50 ML BAG IV ONE (09:00)
--- NOTE | 2018-01-30 09:44 | Progress Note ---
Assessment and Plan - Patient Problems (1) Nausea and vomiting Current Visit: Yes Status: Acute Plan to address problem: Pt stable. Her main issue is N/V. she got very dehydrated which contibuted to her having to return to ED. Now that she has gotten some fluid and had a bowel movement with the enema, she feels better. Abdominal pain is not a significant issue. She has very little pain. CT and LFTs unremarkable, except for stool in rectum. No signs of post-op complication. (01/26) Today, still have N/V, but improving. Pepcid pill made her nauseated. Pain is essentially resolved. Rec: 1) Change to scheduled reglan and zofran. 2) Pt would like bland diet - will cont soft bland diet - need to make sure she can hydrate herself well before d/c home 3) Cont IVF for now 4) Replace K - improved. replace per protocol 5) Stool softener - d/c'd due to #4. Pt would like prn enema 6) ambulate 7) Ask for GI to evaluate - intractable N/V. Discussed with Dr. Coyne. Please call with questions. time=10min Subjective Date of service: 01/30/18 Patient Reports: Positive: bowel movement (with enema), nausea, vomiting ( minimal) Objective Vital Signs - 12hr 01/29/18 01/30/18 01/30/18 22:00 02:28 07:27 Temperature 98.7 F 98.0 F Pulse Rate 81 85 Pulse Rate [ 82 Left Apical] Respiratory 18 20 20 Rate Blood Pressure 131/75 154/70 O2 Sat by Pulse 95 94 Oximetry - General physical appearance no distress, no pain, other (appears weak. ) - Respiratory normal expansion, normal respiratory effort - Abdomen soft, not tender, not distended - Labs 01/30/18 04:47 01/30/18 04:47 Diabetes panel 01/29/18 01/30/18 Range/Units 21:06 04:47 Sodium 137 139 (137-145) mmol/L Potassium 3.6 D 3.2 L (3.6-5.0) mmol/L Chloride 98.3 97.4 L (98-107) mmol/L Carbon Dioxide 23 24 (22-30) mmol/L BUN 4 L 4 L (7-17) mg/dL Creatinine 0.3 L 0.3 L (0.7-1.2) mg/dL Glucose 90 79 (65-100) mg/dL Calcium 8.8 8.8 (8.4-10.2) mg/dL Calcium panel 01/29/18 01/30/18 Range/Units 21:06 04:47 Calcium 8.8 8.8 (8.4-10.2) mg/dL Pituitary panel 01/29/18 01/30/18 Range/Units 21:06 04:47 Sodium 137 139 (137-145) mmol/L Potassium 3.6 D 3.2 L (3.6-5.0) mmol/L Chloride 98.3 97.4 L (98-107) mmol/L Carbon Dioxide 23 24 (22-30) mmol/L BUN 4 L 4 L (7-17) mg/dL Creatinine 0.3 L 0.3 L (0.7-1.2) mg/dL Glucose 90 79 (65-100) mg/dL Calcium 8.8 8.8 (8.4-10.2) mg/dL Adrenal panel 01/29/18 01/30/18 Range/Units 21:06 04:47 Sodium 137 139 (137-145) mmol/L Potassium 3.6 D 3.2 L (3.6-5.0) mmol/L Chloride 98.3 97.4 L (98-107) mmol/L Carbon Dioxide 23 24 (22-30) mmol/L BUN 4 L 4 L (7-17) mg/dL Creatinine 0.3 L 0.3 L (0.7-1.2) mg/dL Glucose 90 79 (65-100) mg/dL Calcium 8.8 8.8 (8.4-10.2) mg/dL
--- NOTE | 2018-01-30 10:58 | Gastroenterology Consultation ---
History of Present Illness - Reason for Consult Consult date: 01/30/18 N/V Requesting physician: SHERYL NOLEN - History of Present Illness Ms. Rojas is a 72 y/o female admitted for intractable N/V. She is s/p CCY, discharged on 01/22/18 from [facility]. She has not been able to take in much PO and has had several episodes of N/V. She denies significant pain. Surgery was consulted and saw the patient and does not feel that it is surgical related. CT on admission with no acute process. She was noted to have hypokalemia on admission. Daughter reports the patient has not been taking in much PO prior to CCY due to pain. No routine NSAID use per daughter. The patient had not had a BM since discharge and was given a stool softener/ senna with BM x 3 yesterday. Past History Past Medical History: No medical history Past Surgical History: cholecystectomy Social history: lives with family Family history: no significant family history Medications and Allergies Allergies Allergy/AdvReac Type Severity Reaction Status Date / Time No Known Allergies Allergy Unverified 05/31/16 20:25 Home Medications Medication Instructions Recorded Confirmed Last Taken Type Bisacodyl [Dulcolax suppos] 10 mg SC QDAY PRN #10 supp.rect 01/30/18 Unknown Rx Famotidine [Pepcid] 20 mg PO BID #60 tablet 01/30/18 Unknown Rx Ondansetron [Zofran ORAL LIQ] 4 mg PO Q4H PRN 5 Days #30 ml 01/30/18 Unknown Rx Promethazine [Phenergan SUPPOS] 6.25 mg SC Q6H #10 supp.rect 01/30/18 Unknown Rx Active Meds: Active Medications Acetaminophen/Hydrocodone Bitart ([place] 5/325) 1 each PO Q6H PRN PRN Reason: Pain, Moderate (4-6) Bisacodyl (Dulcolax) 10 mg SC QDAY PRN PRN Reason: Constipation Famotidine (Pepcid) 20 mg IV BID KARAN Sodium Chloride (Nacl 0.9% 1000 Ml) 1,000 mls @ 75 mls/hr IV DIRECT KARAN Last Admin: 01/30/18 06:15 Dose: 75 mls/hr Magnesium Sulfate (Magnesium Sulfate 2gm/50ml) 2 gm in 50 mls @ 25 mls/hr IV ONCE ONE Stop: 01/30/18 10:59 Last Admin: 01/30/18 09:23 Dose: 25 mls/hr Magnesium Hydroxide (Milk Of Magnesia) 30 ml PO DAILY PRN PRN Reason: Constipation Metoclopramide HCl (Reglan) 10 mg IV Q6HR KARAN Ondansetron HCl (Zofran) 4 mg IV Q6H KARAN Last Admin: 01/30/18 10:06 Dose: 4 mg Potassium Chloride (K-Dur) 40 meq PO ONCE NR Stop: 01/30/18 11:00 Promethazine HCl (Phenergan) 6.25 mg SC Q6HR PRN PRN Reason: Nausea And Vomiting Sodium Biphosphate/Sodium Phosphate (Fleet) 133 ml SC QDAY PRN PRN Reason: Bowel Movement Last Admin: 01/29/18 17:02 Dose: 133 ml Review of Systems - Review of Systems All systems: negative Constitutional: weakness, poor appetite Gastrointestinal: abdominal pain, nausea, vomiting Exam - Constitutional Vital Signs: Temp Pulse Resp BP Pulse Ox 98.0 F 85 20 154/70 94 01/30/18 07:27 01/30/18 07:27 01/30/18 07:27 01/30/18 07:27 01/30/18 07:27 General appearance: no acute distress, other (elderly thin female) - EENT ENT: hearing intact - Neck Neck: supple - Respiratory Respiratory: bilateral: CTA - Cardiovascular Rhythm: regular Heart Sounds: Present: S1 & S2 Extremities: No edema - Gastrointestinal General gastrointestinal: Present: soft, tender (TTP surgical areas), non- distended, normal bowel sounds - Integumentary Integumentary: Present: warm, dry - Neurologic Neurological: alert and oriented x3 - Psychiatric Psychiatric: cooperative - Labs CBC & Chem 7: 01/30/18 04:47 01/30/18 04:47 Lab Results: Laboratory Results - last 24 hr 01/29/18 01/29/18 01/30/18 12:45 21:06 04:47 WBC RBC Hgb Hct MCV MCH MCHC RDW Plt Count Lymph % (Auto) [place] % (Auto) Eos % (Auto) Baso % (Auto) Lymph # [place] # Eos # Baso # Seg Neutrophils % Seg Neutrophils # Sodium 137 139 Potassium 3.6 D 3.2 L Chloride 98.3 97.4 L Carbon Dioxide 23 24 Anion Gap 19 21 BUN 4 L 4 L Creatinine 0.3 L 0.3 L Estimated GFR > 60 > 60 BUN/Creatinine Ratio 13 13 Glucose 90 79 Calcium 8.8 8.8 Magnesium 1.50 L 1.50 L 01/30/18 04:47 WBC 7.2 RBC 4.09 Hgb 12.2 Hct 36.3 MCV 89 MCH 30 MCHC 34 RDW 13.6 Plt Count 335 Lymph % (Auto) 19.7 [place] % (Auto) 7.6 H Eos % (Auto) 2.3 Baso % (Auto) 0.4 Lymph # 1.4 [place] # 0.6 Eos # 0.2 Baso # 0.0 Seg Neutrophils % 70.0 Seg Neutrophils # 5.1 Sodium Potassium Chloride Carbon Dioxide Anion Gap BUN Creatinine Estimated GFR BUN/Creatinine Ratio Glucose Calcium Magnesium Assessment and Plan 1. Intractable N/V -Pt is s/p BM x 3 but continues to have N/V. -S/P CCY discharged on 01/22/18 with poor po intake since that time -CT on admission with no acute process -Repeat CT today -Check CMP/ CBC -Plan for EGD tomorrow, NPO after MN. No blood thinning meds, or NSAIDS. -Anti- emetics as needed. - LFTS normal on admission. - Lipase mildly elevated. Potassium improved.
--- NOTE | 2018-01-30 10:59 | Progress Note ---
Assessment and Plan Assessment and plan: Hypokalemia Patient potassium 3.2. We'll correct today with po potassium. Hypomagnesemia. Replete magnesium. Intractable Nausea and vomiting GI consultation pending. Postoperative abdominal pain Abdominal pain has resolved. I discussed the case with surgery. Likely DC in a.m. History Interval history: Patient still exhibiting nausea and vomiting. Hospitalist Physical - Constitutional Vitals: Temp Pulse Resp BP Pulse Ox 98.0 F 85 20 154/70 94 01/30/18 07:27 01/30/18 07:27 01/30/18 07:27 01/30/18 07:27 01/30/18 07:27 General appearance: Present: no acute distress, well-nourished - EENT Eyes: Present: PERRL, EOM intact ENT: hearing intact, clear oral mucosa, dentition normal - Neck Neck: Present: supple, normal ROM - Respiratory Respiratory effort: normal Respiratory: bilateral: CTA - Cardiovascular Rhythm: regular Heart Sounds: Present: S1 & S2. Absent: gallop, rub - Extremities Extremities: no ischemia, No edema, Full ROM - Abdominal General gastrointestinal: soft, non-tender, non-distended, normal bowel sounds - Integumentary Integumentary: Present: clear, warm, dry - Neurologic Neurologic: CNII-XII intact, moves all extremities Results - Labs CBC & Chem 7: 01/30/18 04:47 01/30/18 04:47 Labs: Laboratory Last Values WBC 7.2 K/mm3 (4.5-11.0) 01/30/18 04:47 RBC 4.09 M/mm3 (3.65-5.03) 01/30/18 04:47 Hgb 12.2 gm/dl (10.1-14.3) 01/30/18 04:47 Hct 36.3 % (30.3-42.9) 01/30/18 04:47 MCV 89 fl (79-97) 01/30/18 04:47 MCH 30 pg (28-32) 01/30/18 04:47 MCHC 34 % (30-34) 01/30/18 04:47 RDW 13.6 % (13.2-15.2) 01/30/18 04:47 Plt Count 335 K/mm3 (140-440) 01/30/18 04:47 Lymph % (Auto) 19.7 % (13.4-35.0) 01/30/18 04:47 [place] % (Auto) 7.6 % (0.0-7.3) H 01/30/18 04:47 Eos % (Auto) 2.3 % (0.0-4.3) 01/30/18 04:47 Baso % (Auto) 0.4 % (0.0-1.8) 01/30/18 04:47 Lymph # 1.4 K/mm3 (1.2-5.4) 01/30/18 04:47 [place] # 0.6 K/mm3 (0.0-0.8) 01/30/18 04:47 Eos # 0.2 K/mm3 (0.0-0.4) 01/30/18 04:47 Baso # 0.0 K/mm3 (0.0-0.1) 01/30/18 04:47 Seg Neutrophils % 70.0 % (40.0-70.0) 01/30/18 04:47 Seg Neutrophils # 5.1 K/mm3 (1.8-7.7) 01/30/18 04:47 Sodium 139 mmol/L (137-145) 01/30/18 04:47 Potassium 3.2 mmol/L (3.6-5.0) L 01/30/18 04:47 Chloride 97.4 mmol/L (98-107) L 01/30/18 04:47 Carbon Dioxide 24 mmol/L (22-30) 01/30/18 04:47 Anion Gap 21 mmol/L 01/30/18 04:47 BUN 4 mg/dL (7-17) L 01/30/18 04:47 Creatinine 0.3 mg/dL (0.7-1.2) L 01/30/18 04:47 Estimated GFR > 60 ml/min 01/30/18 04:47 BUN/Creatinine Ratio 13 % 01/30/18 04:47 Glucose 79 mg/dL (65-100) 01/30/18 04:47 Calcium 8.8 mg/dL (8.4-10.2) 01/30/18 04:47 Magnesium 1.50 mg/dL (1.7-2.3) L 01/30/18 04:47 Total Bilirubin 0.60 mg/dL (0.1-1.2) 01/26/18 01:07 AST 17 units/L (5-40) 01/26/18 01:07 ALT 16 units/L (7-56) 01/26/18 01:07 Alkaline Phosphatase 90 units/L (35-129) 01/26/18 01:07 Total Protein 7.4 g/dL (6.3-8.2) 01/26/18 01:07 Albumin 3.9 g/dL (3.9-5) 01/26/18 01:07 Albumin/Globulin Ratio 1.1 % 01/26/18 01:07 Lipase 79 units/L (13-60) H 01/26/18 01:07 Urine Color Yellow (Yellow) 01/26/18 03:40 Urine Turbidity Clear (Clear) 01/26/18 03:40 Urine pH 6.0 (5.0-7.0) 01/26/18 03:40 Ur Specific [place] 1.038 (1.003-1.030) H 01/26/18 03:40 Urine Protein <15 mg/dl mg/dL (Negative) 01/26/18 03:40 Urine Glucose (UA) Neg mg/dL (Negative) 01/26/18 03:40 Urine Ketones 80 mg/dL (Negative) 01/26/18 03:40 Urine Blood Neg (Negative) 01/26/18 03:40 Urine Nitrite Neg (Negative) 01/26/18 03:40 Urine Bilirubin Neg (Negative) 01/26/18 03:40 Urine Urobilinogen 2.0 mg/dL (<2.0) 01/26/18 03:40 Ur Leukocyte Esterase Neg (Negative) 01/26/18 03:40 Urine WBC (Auto) 1.0 /HPF (0.0-6.0) 01/26/18 03:40 Urine RBC (Auto) 3.0 /HPF (0.0-6.0) 01/26/18 03:40 U Epithel Cells (Auto) 1.0 /HPF (0-13.0) 01/26/18 03:40 Urine Mucus 1+ /HPF 01/26/18 03:40
[2018-01-30] MEDS: REGLAN IV SCH (11:18)
[2018-01-30] MEDS: PEPCID IV SCH ×2 (11:18→22:02)
[2018-01-30 11:49] LABS: Hemoglobin 12.5 gm/dl (10.1-14.3); Mean Corpuscular HGB Conc 35 % (30-34); Mean Corpuscular Hemoglobin 31 pg (28-32); Mean Corpuscular Volume 88 fl (79-97); Platelet Count 343 K/mm3 (140-440); Red Blood Count 4.07 M/mm3 (3.65-5.03); Red Cell Distribution Width 13.7 % (13.2-15.2)
[2018-01-30 11:50] LABS: Alanine Aminotransferase 11 units/L (7-56); Albumin 3.7 g/dL (3.9-5); BUN/Creatinine Ratio 13; Blood Urea Nitrogen 4 mg/dL (7-17); Calcium 8.9 mg/dL (8.4-10.2); Hemolysis Index 4
[2018-01-30] MEDS ORDERED: PHENERGAN PR PRN (12:00)
--- NOTE | 2018-01-30 17:54 | Cat Scan Report ---
FINAL REPORT EXAM: CT ABDOMEN PELVIS W CON HISTORY: N/V TECHNIQUE: CT abdomen and pelvis with oral and intravenous contrast PRIORS: None. FINDINGS: No acute abnormality identified in the lung bases. No focal abnormality identified within the liver parenchyma. Patient is status post cholecystectomy. The spleen demonstrates normal size and attenuation. No pancreatic abnormalities seen. The kidneys demonstrate symmetric contrast enhancement. Adrenal glands are unremarkable. No evidence of hydronephrosis. Abdominal aorta is normal in caliber. No pathologically enlarged lymph nodes are identified. No signs of free fluid or free air No evidence of small bowel dilatation. No pericolonic inflammatory changes are observed. Urinary bladder is distended. IMPRESSION: Status post cholecystectomy Distention of the urinary bladder No additional acute findings
[2018-01-31] MEDS: NACL 0.9% 1000 ML 1,000 ML IV SCH ×2 (00:43→14:10)
[2018-01-31] MEDS: REGLAN IV SCH ×3 (00:44→20:03)
[2018-01-31] MEDS: ZOFRAN IV SCH ×2 (04:51→10:59)
--- NOTE | 2018-01-31 10:04 | Progress Note ---
Assessment and Plan Assessment and plan: Hypokalemia Replete as needed Hypomagnesemia. Replete magnesium. Intractable Nausea and vomiting GI to perform EGD today. Rule out GOO Postoperative abdominal pain Abdominal pain has resolved. History Interval history: Patient still exhibiting nausea and vomiting. Hospitalist Physical - Constitutional Vitals: Temp Pulse Resp BP Pulse Ox 97.7 F 89 16 148/79 94 01/31/18 08:09 01/31/18 08:09 01/31/18 08:09 01/31/18 08:09 01/31/18 08:09 General appearance: Present: no acute distress, well-nourished - EENT Eyes: Present: PERRL, EOM intact ENT: hearing intact, clear oral mucosa, dentition normal - Neck Neck: Present: supple, normal ROM - Respiratory Respiratory effort: normal Respiratory: bilateral: CTA - Cardiovascular Rhythm: regular Heart Sounds: Present: S1 & S2. Absent: gallop, rub - Extremities Extremities: no ischemia, No edema, Full ROM - Abdominal General gastrointestinal: soft, non-tender, non-distended, normal bowel sounds - Integumentary Integumentary: Present: clear, warm, dry - Neurologic Neurologic: CNII-XII intact, moves all extremities Results - Labs CBC & Chem 7: 01/30/18 11:18 01/30/18 11:18 Labs: Laboratory Last Values WBC 7.3 K/mm3 (4.5-11.0) 01/30/18 11:18 RBC 4.07 M/mm3 (3.65-5.03) 01/30/18 11:18 Hgb 12.5 gm/dl (10.1-14.3) 01/30/18 11:18 Hct 36.0 % (30.3-42.9) 01/30/18 11:18 MCV 88 fl (79-97) 01/30/18 11:18 MCH 31 pg (28-32) 01/30/18 11:18 MCHC 35 % (30-34) H 01/30/18 11:18 RDW 13.7 % (13.2-15.2) 01/30/18 11:18 Plt Count 343 K/mm3 (140-440) 01/30/18 11:18 Lymph % (Auto) 19.7 % (13.4-35.0) 01/30/18 04:47 [place] % (Auto) 7.6 % (0.0-7.3) H 01/30/18 04:47 Eos % (Auto) 2.3 % (0.0-4.3) 01/30/18 04:47 Baso % (Auto) 0.4 % (0.0-1.8) 01/30/18 04:47 Lymph # 1.4 K/mm3 (1.2-5.4) 01/30/18 04:47 [place] # 0.6 K/mm3 (0.0-0.8) 01/30/18 04:47 Eos # 0.2 K/mm3 (0.0-0.4) 01/30/18 04:47 Baso # 0.0 K/mm3 (0.0-0.1) 01/30/18 04:47 Seg Neutrophils % 70.0 % (40.0-70.0) 01/30/18 04:47 Seg Neutrophils # 5.1 K/mm3 (1.8-7.7) 01/30/18 04:47 Sodium 138 mmol/L (137-145) 01/30/18 11:18 Potassium 3.3 mmol/L (3.6-5.0) L 01/30/18 11:18 Chloride 96.5 mmol/L (98-107) L 01/30/18 11:18 Carbon Dioxide 22 mmol/L (22-30) 01/30/18 11:18 Anion Gap 23 mmol/L 01/30/18 11:18 BUN 4 mg/dL (7-17) L 01/30/18 11:18 Creatinine 0.3 mg/dL (0.7-1.2) L 01/30/18 11:18 Estimated GFR > 60 ml/min 01/30/18 11:18 BUN/Creatinine Ratio 13 % 01/30/18 11:18 Glucose 91 mg/dL (65-100) 01/30/18 11:18 Calcium 8.9 mg/dL (8.4-10.2) 01/30/18 11:18 Magnesium 1.50 mg/dL (1.7-2.3) L 01/30/18 04:47 Total Bilirubin 0.60 mg/dL (0.1-1.2) 01/30/18 11:18 AST 16 units/L (5-40) 01/30/18 11:18 ALT 11 units/L (7-56) 01/30/18 11:18 Alkaline Phosphatase 80 units/L (35-129) 01/30/18 11:18 Total Protein 6.3 g/dL (6.3-8.2) 01/30/18 11:18 Albumin 3.7 g/dL (3.9-5) L 01/30/18 11:18 Albumin/Globulin Ratio 1.4 % 01/30/18 11:18 Lipase 79 units/L (13-60) H 01/26/18 01:07 Urine Color Yellow (Yellow) 01/26/18 03:40 Urine Turbidity Clear (Clear) 01/26/18 03:40 Urine pH 6.0 (5.0-7.0) 01/26/18 03:40 Ur Specific [place] 1.038 (1.003-1.030) H 01/26/18 03:40 Urine Protein <15 mg/dl mg/dL (Negative) 01/26/18 03:40 Urine Glucose (UA) Neg mg/dL (Negative) 01/26/18 03:40 Urine Ketones 80 mg/dL (Negative) 01/26/18 03:40 Urine Blood Neg (Negative) 01/26/18 03:40 Urine Nitrite Neg (Negative) 01/26/18 03:40 Urine Bilirubin Neg (Negative) 01/26/18 03:40 Urine Urobilinogen 2.0 mg/dL (<2.0) 01/26/18 03:40 Ur Leukocyte Esterase Neg (Negative) 01/26/18 03:40 Urine WBC (Auto) 1.0 /HPF (0.0-6.0) 01/26/18 03:40 Urine RBC (Auto) 3.0 /HPF (0.0-6.0) 01/26/18 03:40 U Epithel Cells (Auto) 1.0 /HPF (0-13.0) 01/26/18 03:40 Urine Mucus 1+ /HPF 01/26/18 03:40
[2018-01-31] MEDS: K-DUR PO SCH (10:58)
[2018-01-31] MEDS: PEPCID IV SCH (10:59)
[2018-01-31] MEDS ORDERED: REGLAN IV PRN (13:57)
--- NOTE | 2018-01-31 13:59 | Progress Note ---
Assessment and Plan - Patient Problems (1) Nausea and vomiting Current Visit: Yes Status: Acute Plan to address problem: Pt stable. Her main issue is N/V. she got very dehydrated which contibuted to her having to return to ED. Now that she has gotten some fluid and had a bowel movement with the enema, she feels better. Abdominal pain is not a significant issue. She has very little pain. CT and LFTs unremarkable, except for stool in rectum. No signs of post-op complication. (01/26) main issue appears to be gagging and small amount of spit. Not true vomiting anymore. Smell of food is making her gag. Perhaps med related? Rec: 1) Change all nausea meds to prn 2) Pt would like bland diet - will cont soft bland diet - need to make sure she can hydrate herself well before d/c home 3) Cont IVF for now 4) Replace K - improved. replace per protocol 5) Stool softener - d/c'd due to #4. Pt would like prn enema 6) ambulate 7) Appreciate GI assistance - await results of EGD Please call with questions. time=10min Subjective Date of service: 01/31/18 Patient Reports: Positive: nausea (gagging more than anything. gets nauseated with smell of food. ) Objective Vital Signs - 12hr 01/31/18 01/31/18 01/31/18 02:10 08:09 10:00 Temperature 98.1 F 97.7 F Pulse Rate 80 89 84 Respiratory 16 16 Rate Blood Pressure 148/79 Blood Pressure 138/68 [Left] O2 Sat by Pulse 96 94 Oximetry 01/31/18 01/31/18 13:50 13:55 Temperature 98.3 F 98.3 F Pulse Rate 83 83 Respiratory 16 16 Rate Blood Pressure 150/71 150/71 Blood Pressure [Left] O2 Sat by Pulse 96 96 Oximetry - General physical appearance no distress, no pain, other (appears very weak) - Respiratory normal expansion, normal respiratory effort - Abdomen soft, not tender, not distended - Labs 01/30/18 11:18 01/30/18 11:18
[2018-01-31] MEDS ORDERED: NACL 0.9% 1000 ML 1,000 ML IV SCH (14:00)
--- NOTE | 2018-01-31 14:20 | Anesthesia Day of Surgery ---
Anesthesia Day of Surgery - Day of Surgery Patient Examined: Yes Patient H&P Reviewed: Yes Patient is NPO: Yes
--- NOTE | 2018-01-31 14:20 | Anesthesia Consultation ---
Anesthesia Consult and Med Hx Date of service: 01/31/18 - Airway Anesthetic Teeth Evaluation: Good ROM Head & Neck: Adequate Mental/Hyoid Distance: Adequate Mallampati Class: Class II Intubation Access Assessment: Probably Good - Pre-Operative Health Status ASA Pre-Surgery Classification: ASA2 Proposed Anesthetic Plan: MAC - Central Nervous System Hx Psychiatric Problems: No - Gastrointestinal Hx Gastroesophageal Reflux Disease: Yes (nausea and vomiting) - Endocrine Hx Liver Disease: Yes (s/p Lap Barbara 2weeks ago) - Hematic Hx Anemia: No - Other Systems Hx Cancer: No
--- NOTE | 2018-01-31 15:37 | Post Operative Note ---
Date of procedure: 01/31/18 Pre-op diagnosis: N/V Post-op diagnosis: other (Abnormal Mucosa) Findings: 1. Markedly abnormal mucosa in gastric antrum (appeared nodular and adenomatous) ; cold bx taken 2. No blood and no gastric outlet obstruction Procedure: EGD with cold biopsy Anesthesia: MAC Surgeon: STEVE HINES Estimated blood loss: none Pathology: list (1. Gastric antrum) Specimen disposition: to lab Condition: stable Disposition: floor (Recs: 1. Sips of full liquids. 2. TPN if unable to tolerate. 3. Continue protonix. 4. F/U pathology. 5. If pathology is non- diagnostic, would recommend an endoscopic ultrasound.)
[2018-01-31] MEDS ORDERED: DIPRIVAN 10 MG/ML IV ONE (15:45)
--- NOTE | 2018-01-31 19:56 | Operative Report ---
PROCEDURE PERFORMED: Esophagogastroduodenoscopy with cold biopsy. PREOPERATIVE DIAGNOSES: Intractable nausea and vomiting. POSTOPERATIVE DIAGNOSIS: Abnormal gastric mucosa. ENDOSCOPIST: Wily Gallardo MD INSTRUMENT: Olympus video endoscope. MEDICATIONS: MAC anesthesia by Anesthesia Services. COMPLICATIONS: No apparent complications. ESTIMATED BLOOD LOSS: Minimal. SPECIMENS: Gastric antrum. IMPLANTS: None. ASSISTANTS: None. CONDITION AT COMPLETION: Stable. TECHNIQUE: The patient was informed of the risks and benefits of the procedure. She signed informed consent to proceed. She was placed in left lateral decubitus position. The above sedative medications were given. Her vital signs remained stable throughout the procedure. The instrument was advanced from the mouth to the second portion of the duodenum under direct visualization. At that point, the bowel was insufflated and the endoscope was slowly withdrawn. FINDINGS: 1. Normal duodenum. 2. Markedly abnormal mucosa in the prepyloric antrum of the stomach; multiple cold biopsies were obtained. The mucosa appeared very nodular and adenomatous. 3. Otherwise, normal upper gastrointestinal tract. RECOMMENDATIONS: 1. Full liquid diet. 2. Total parenteral nutrition of the patient is unable to advance her diet. 3. Continue daily Protonix. 4. Follow up on pathology. 5. If the pathology is nondiagnostic, I would consider an endoscopic ultrasound of the gastric antrum. JOB# [id number] PEDRO/NTS
[2018-01-31] MEDS: PROTONIX IV SCH (20:02)
[2018-02-01 04:28] LABS: BUN/Creatinine Ratio 17; Blood Urea Nitrogen 5 mg/dL (7-17); Calcium 9.3 mg/dL (8.4-10.2); Hemolysis Index 8
[2018-02-01] MEDS: K-DUR PO SCH ×2 (10:20→10:36)
[2018-02-01] MEDS: PROTONIX IV SCH (10:20)
[2018-02-01] MEDS ORDERED: KCL 10MEQ/100ML 10 MEQ/100 ML BAG IV ONE (10:56)
--- NOTE | 2018-02-01 10:56 | Progress Note ---
Assessment and Plan Assessment and plan: Hypokalemia Replete as needed Hypomagnesemia. Replete magnesium. Intractable Nausea and vomiting EGD revealed Markedly abnormal mucosa in gastric antrum (appeared nodular and adenomatous); cold bx taken. No evidence of gastric outlet obstruction. Continue Reglan. Protein calorie malnutrition. We will start IV TPN. Add Megace. Postoperative abdominal pain Abdominal pain has resolved. History Interval history: Patient still exhibiting nausea and vomiting. Hospitalist Physical - Constitutional Vitals: Temp Pulse Resp BP Pulse Ox 98.2 F 82 18 141/76 98 02/01/18 07:33 02/01/18 08:50 02/01/18 08:50 02/01/18 07:33 02/01/18 08:50 General appearance: Present: no acute distress, well-nourished - EENT Eyes: Present: PERRL, EOM intact ENT: hearing intact, clear oral mucosa, dentition normal - Neck Neck: Present: supple, normal ROM - Respiratory Respiratory effort: normal Respiratory: bilateral: CTA - Cardiovascular Rhythm: regular Heart Sounds: Present: S1 & S2. Absent: gallop, rub - Extremities Extremities: no ischemia, No edema, Full ROM - Abdominal General gastrointestinal: soft, non-tender, non-distended, normal bowel sounds - Integumentary Integumentary: Present: clear, warm, dry - Neurologic Neurologic: CNII-XII intact, moves all extremities Results - Labs CBC & Chem 7: 01/30/18 11:18 02/01/18 03:34 Labs: Laboratory Last Values WBC 7.3 K/mm3 (4.5-11.0) 01/30/18 11:18 RBC 4.07 M/mm3 (3.65-5.03) 01/30/18 11:18 Hgb 12.5 gm/dl (10.1-14.3) 01/30/18 11:18 Hct 36.0 % (30.3-42.9) 01/30/18 11:18 MCV 88 fl (79-97) 01/30/18 11:18 MCH 31 pg (28-32) 01/30/18 11:18 MCHC 35 % (30-34) H 01/30/18 11:18 RDW 13.7 % (13.2-15.2) 01/30/18 11:18 Plt Count 343 K/mm3 (140-440) 01/30/18 11:18 Lymph % (Auto) 19.7 % (13.4-35.0) 01/30/18 04:47 [place] % (Auto) 7.6 % (0.0-7.3) H 01/30/18 04:47 Eos % (Auto) 2.3 % (0.0-4.3) 01/30/18 04:47 Baso % (Auto) 0.4 % (0.0-1.8) 01/30/18 04:47 Lymph # 1.4 K/mm3 (1.2-5.4) 01/30/18 04:47 [place] # 0.6 K/mm3 (0.0-0.8) 01/30/18 04:47 Eos # 0.2 K/mm3 (0.0-0.4) 01/30/18 04:47 Baso # 0.0 K/mm3 (0.0-0.1) 01/30/18 04:47 Seg Neutrophils % 70.0 % (40.0-70.0) 01/30/18 04:47 Seg Neutrophils # 5.1 K/mm3 (1.8-7.7) 01/30/18 04:47 Sodium 140 mmol/L (137-145) 02/01/18 03:34 Potassium 3.1 mmol/L (3.6-5.0) L 02/01/18 03:34 Chloride 98.3 mmol/L (98-107) 02/01/18 03:34 Carbon Dioxide 20 mmol/L (22-30) L 02/01/18 03:34 Anion Gap 25 mmol/L 02/01/18 03:34 BUN 5 mg/dL (7-17) L 02/01/18 03:34 Creatinine 0.3 mg/dL (0.7-1.2) L 02/01/18 03:34 Estimated GFR > 60 ml/min 02/01/18 03:34 BUN/Creatinine Ratio 17 % 02/01/18 03:34 Glucose 116 mg/dL (65-100) H 02/01/18 03:34 Calcium 9.3 mg/dL (8.4-10.2) 02/01/18 03:34 Magnesium 1.90 mg/dL (1.7-2.3) 02/01/18 03:34 Total Bilirubin 0.60 mg/dL (0.1-1.2) 01/30/18 11:18 AST 16 units/L (5-40) 01/30/18 11:18 ALT 11 units/L (7-56) 01/30/18 11:18 Alkaline Phosphatase 80 units/L (35-129) 01/30/18 11:18 Total Protein 6.3 g/dL (6.3-8.2) 01/30/18 11:18 Albumin 3.7 g/dL (3.9-5) L 01/30/18 11:18 Albumin/Globulin Ratio 1.4 % 01/30/18 11:18 Lipase 79 units/L (13-60) H 01/26/18 01:07 Urine Color Yellow (Yellow) 01/26/18 03:40 Urine Turbidity Clear (Clear) 01/26/18 03:40 Urine pH 6.0 (5.0-7.0) 01/26/18 03:40 Ur Specific [place] 1.038 (1.003-1.030) H 01/26/18 03:40 Urine Protein <15 mg/dl mg/dL (Negative) 01/26/18 03:40 Urine Glucose (UA) Neg mg/dL (Negative) 01/26/18 03:40 Urine Ketones 80 mg/dL (Negative) 01/26/18 03:40 Urine Blood Neg (Negative) 01/26/18 03:40 Urine Nitrite Neg (Negative) 01/26/18 03:40 Urine Bilirubin Neg (Negative) 01/26/18 03:40 Urine Urobilinogen 2.0 mg/dL (<2.0) 01/26/18 03:40 Ur Leukocyte Esterase Neg (Negative) 01/26/18 03:40 Urine WBC (Auto) 1.0 /HPF (0.0-6.0) 01/26/18 03:40 Urine RBC (Auto) 3.0 /HPF (0.0-6.0) 01/26/18 03:40 U Epithel Cells (Auto) 1.0 /HPF (0-13.0) 01/26/18 03:40 Urine Mucus 1+ /HPF 01/26/18 03:40
[2018-02-01] MEDS: ZOFRAN IV PRN ×2 (11:02→20:39)
--- NOTE | 2018-02-01 13:36 | Progress Note ---
Assessment and Plan 72 yo F with intractable nausea/vomiting EGD 01/31/18 - 1. Markedly abnormal mucosa in gastric antrum (appeared nodular and adenomatous); cold bx taken 2. No blood and no gastric outlet obstruction Plan: 1) continue prn nausea meds 2) c/w diet as tolerated, may need TPN 3) Cont IVF for now 4) Replace lytes at needed 5) ambulate 6) await path results In discussion with daughter, the patient has had unintentional weight loss over the last several months although she cannot quantify how much. Please call with questions. Subjective Date of service: 02/01/18 Narrative: Pt seen and examined. States she feels weak and is only tolerating hot water PO. She does not want to take in more than this due to nausea. + Retching but no emesis since yesterday. No f/c. No abdominal pain. Objective Vital Signs - 12hr 02/01/18 02/01/18 02/01/18 02:15 07:33 07:34 Temperature 97.8 F 98.2 F Pulse Rate 80 Pulse Rate [ Left Apical] Respiratory 18 18 Rate Blood Pressure 130/70 141/76 O2 Sat by Pulse 93 Oximetry 02/01/18 08:50 Temperature Pulse Rate Pulse Rate [ 82 Left Apical] Respiratory 18 Rate Blood Pressure O2 Sat by Pulse 98 Oximetry - General physical appearance Narrative Exam: Gen: AAOx3. NAD. cachectic appearing CV: S1, S2+ resp: even and unlabored Abd: soft, NT, ND Ext: no c/c/e - Labs 01/30/18 11:18 02/01/18 03:34 Diabetes panel 02/01/18 Range/Units 03:34 Sodium 140 (137-145) mmol/L Potassium 3.1 L (3.6-5.0) mmol/L Chloride 98.3 (98-107) mmol/L Carbon Dioxide 20 L (22-30) mmol/L BUN 5 L (7-17) mg/dL Creatinine 0.3 L (0.7-1.2) mg/dL Glucose 116 H (65-100) mg/dL Calcium 9.3 (8.4-10.2) mg/dL Calcium panel 02/01/18 Range/Units 03:34 Calcium 9.3 (8.4-10.2) mg/dL Pituitary panel 02/01/18 Range/Units 03:34 Sodium 140 (137-145) mmol/L Potassium 3.1 L (3.6-5.0) mmol/L Chloride 98.3 (98-107) mmol/L Carbon Dioxide 20 L (22-30) mmol/L BUN 5 L (7-17) mg/dL Creatinine 0.3 L (0.7-1.2) mg/dL Glucose 116 H (65-100) mg/dL Calcium 9.3 (8.4-10.2) mg/dL Adrenal panel 02/01/18 Range/Units 03:34 Sodium 140 (137-145) mmol/L Potassium 3.1 L (3.6-5.0) mmol/L Chloride 98.3 (98-107) mmol/L Carbon Dioxide 20 L (22-30) mmol/L BUN 5 L (7-17) mg/dL Creatinine 0.3 L (0.7-1.2) mg/dL Glucose 116 H (65-100) mg/dL Calcium 9.3 (8.4-10.2) mg/dL
--- NOTE | 2018-02-01 14:03 | Gastroenterology Progress Note ---
Assessment and Plan 1. Intractable nausea/vomiting 2. Unintentional weight loss 3. Abnormal gastric mucosa in antrum/mass - r/o malignancy -await path results -cont anti-emetics/supportive care and CLD as tolerated. if unable to tolerate po, will need to consider tpn -further management following path results. if non-diagnostic, likely will need EUS Subjective Date of service: 02/01/18 Principal diagnosis: intractable nausea/vomiting, weight loss Interval history: pt seen and examined. tolerated some clears today but still with n/v. Objective - Exam Narrative Exam: Gen: thin, chronically ill appearing female cv: rrr lungs: CTAB Abd: soft, nt, nd, +bs - Constitutional Vitals: Temp Pulse Resp BP Pulse Ox 98.2 F 82 18 141/76 98 02/01/18 07:33 02/01/18 08:50 02/01/18 08:50 02/01/18 07:33 02/01/18 08:50 - Labs CBC & Chem 7: 01/30/18 11:18 02/01/18 03:34 Labs: Laboratory Results - last 24 hr 02/01/18 03:34 Sodium 140 Potassium 3.1 L Chloride 98.3 Carbon Dioxide 20 L Anion Gap 25 BUN 5 L Creatinine 0.3 L Estimated GFR > 60 BUN/Creatinine Ratio 17 Glucose 116 H Calcium 9.3 Magnesium 1.90
[2018-02-01] MEDS ORDERED: TPN ADULT 2,016 ML IV SCH (20:00)
[2018-02-02 06:44] LABS: BUN/Creatinine Ratio 33; Blood Urea Nitrogen 10 mg/dL (7-17); Calcium 9.1 mg/dL (8.4-10.2); Hemolysis Index 14
--- NOTE | 2018-02-02 10:22 | Progress Note ---
Assessment and Plan Assessment and plan: Hypokalemia Replete as needed Hypomagnesemia. Replete magnesium. Intractable Nausea and vomiting EGD revealed Markedly abnormal mucosa in gastric antrum (appeared nodular and adenomatous); cold bx taken. No evidence of gastric outlet obstruction. Continue Reglan. Protein calorie malnutrition. Cont. TPN. Added Megace. Postoperative abdominal pain Abdominal pain has resolved. History Interval history: Patient w/ no nausea and vomiting last evening. Hospitalist Physical - Constitutional Vitals: Temp Pulse Resp BP Pulse Ox 98.1 F 79 16 143/69 94 02/02/18 07:26 02/02/18 07:26 02/02/18 07:26 02/02/18 07:26 02/02/18 07:26 General appearance: Present: no acute distress, well-nourished - EENT Eyes: Present: PERRL, EOM intact ENT: hearing intact, clear oral mucosa, dentition normal - Neck Neck: Present: supple, normal ROM - Respiratory Respiratory effort: normal Respiratory: bilateral: CTA - Cardiovascular Rhythm: regular Heart Sounds: Present: S1 & S2. Absent: gallop, rub - Extremities Extremities: no ischemia, No edema, Full ROM - Abdominal General gastrointestinal: soft, non-tender, non-distended, normal bowel sounds - Integumentary Integumentary: Present: clear, warm, dry - Neurologic Neurologic: CNII-XII intact, moves all extremities Results - Labs CBC & Chem 7: 01/30/18 11:18 02/02/18 05:47 Labs: Laboratory Last Values WBC 7.3 K/mm3 (4.5-11.0) 01/30/18 11:18 RBC 4.07 M/mm3 (3.65-5.03) 01/30/18 11:18 Hgb 12.5 gm/dl (10.1-14.3) 01/30/18 11:18 Hct 36.0 % (30.3-42.9) 01/30/18 11:18 MCV 88 fl (79-97) 01/30/18 11:18 MCH 31 pg (28-32) 01/30/18 11:18 MCHC 35 % (30-34) H 01/30/18 11:18 RDW 13.7 % (13.2-15.2) 01/30/18 11:18 Plt Count 343 K/mm3 (140-440) 01/30/18 11:18 Lymph % (Auto) 19.7 % (13.4-35.0) 01/30/18 04:47 [place] % (Auto) 7.6 % (0.0-7.3) H 01/30/18 04:47 Eos % (Auto) 2.3 % (0.0-4.3) 01/30/18 04:47 Baso % (Auto) 0.4 % (0.0-1.8) 01/30/18 04:47 Lymph # 1.4 K/mm3 (1.2-5.4) 01/30/18 04:47 [place] # 0.6 K/mm3 (0.0-0.8) 01/30/18 04:47 Eos # 0.2 K/mm3 (0.0-0.4) 01/30/18 04:47 Baso # 0.0 K/mm3 (0.0-0.1) 01/30/18 04:47 Seg Neutrophils % 70.0 % (40.0-70.0) 01/30/18 04:47 Seg Neutrophils # 5.1 K/mm3 (1.8-7.7) 01/30/18 04:47 Sodium 138 mmol/L (137-145) 02/02/18 05:47 Potassium 3.5 mmol/L (3.6-5.0) L 02/02/18 05:47 Chloride 98.9 mmol/L (98-107) 02/02/18 05:47 Carbon Dioxide 28 mmol/L (22-30) D 02/02/18 05:47 Anion Gap 15 mmol/L 02/02/18 05:47 BUN 10 mg/dL (7-17) 02/02/18 05:47 Creatinine 0.3 mg/dL (0.7-1.2) L 02/02/18 05:47 Estimated GFR > 60 ml/min 02/02/18 05:47 BUN/Creatinine Ratio 33 % 02/02/18 05:47 Glucose 149 mg/dL (65-100) H 02/02/18 05:47 Calcium 9.1 mg/dL (8.4-10.2) 02/02/18 05:47 Phosphorus 2.00 mg/dL (2.5-4.5) L 02/02/18 05:47 Magnesium 2.10 mg/dL (1.7-2.3) 02/02/18 05:47 Total Bilirubin 0.60 mg/dL (0.1-1.2) 01/30/18 11:18 AST 16 units/L (5-40) 01/30/18 11:18 ALT 11 units/L (7-56) 01/30/18 11:18 Alkaline Phosphatase 80 units/L (35-129) 01/30/18 11:18 Total Protein 6.3 g/dL (6.3-8.2) 01/30/18 11:18 Albumin 3.7 g/dL (3.9-5) L 01/30/18 11:18 Albumin/Globulin Ratio 1.4 % 01/30/18 11:18 Lipase 79 units/L (13-60) H 01/26/18 01:07 Urine Color Yellow (Yellow) 01/26/18 03:40 Urine Turbidity Clear (Clear) 01/26/18 03:40 Urine pH 6.0 (5.0-7.0) 01/26/18 03:40 Ur Specific [place] 1.038 (1.003-1.030) H 01/26/18 03:40 Urine Protein <15 mg/dl mg/dL (Negative) 01/26/18 03:40 Urine Glucose (UA) Neg mg/dL (Negative) 01/26/18 03:40 Urine Ketones 80 mg/dL (Negative) 01/26/18 03:40 Urine Blood Neg (Negative) 01/26/18 03:40 Urine Nitrite Neg (Negative) 01/26/18 03:40 Urine Bilirubin Neg (Negative) 01/26/18 03:40 Urine Urobilinogen 2.0 mg/dL (<2.0) 01/26/18 03:40 Ur Leukocyte Esterase Neg (Negative) 01/26/18 03:40 Urine WBC (Auto) 1.0 /HPF (0.0-6.0) 01/26/18 03:40 Urine RBC (Auto) 3.0 /HPF (0.0-6.0) 01/26/18 03:40 U Epithel Cells (Auto) 1.0 /HPF (0-13.0) 01/26/18 03:40 Urine Mucus 1+ /HPF 01/26/18 03:40
[2018-02-02] MEDS: MEGACE PO SCH (10:31)
[2018-02-02] MEDS: PROTONIX IV SCH (10:33)
[2018-02-02] MEDS: K-DUR PO SCH (10:35)
[2018-02-02] MEDS ORDERED: KCL 10MEQ/100ML 10 MEQ/100 ML BAG IV ONE (11:52)
[2018-02-02] MEDS ORDERED: TPN ADULT 2,016 ML IV SCH (20:00)
[2018-02-02] MEDS: ZOFRAN IV PRN (20:26)
[2018-02-03 04:22] LABS: BUN/Creatinine Ratio 60; Blood Urea Nitrogen 12 mg/dL (7-17); Calcium 8.8 mg/dL (8.4-10.2); Hemolysis Index 12
--- NOTE | 2018-02-03 08:43 | Progress Note ---
Assessment and Plan Assessment and plan: Hypokalemia Replete as needed Hypomagnesemia. Replete magnesium. Intractable Nausea and vomiting EGD revealed Markedly abnormal mucosa in gastric antrum (appeared nodular and adenomatous); cold bx taken. No evidence of gastric outlet obstruction. Continue Reglan. Protein calorie malnutrition. Cont. TPN. Added Megace. Postoperative abdominal pain Abdominal pain has resolved. History Interval history: Patient w/ no nausea and vomiting last evening. Hospitalist Physical - Constitutional Vitals: Temp Pulse Resp BP Pulse Ox 97.4 F L 75 16 122/73 96 02/03/18 03:02 02/03/18 03:02 02/03/18 03:02 02/03/18 03:02 02/03/18 03:02 General appearance: Present: no acute distress, well-nourished - EENT Eyes: Present: PERRL, EOM intact ENT: hearing intact, clear oral mucosa, dentition normal - Neck Neck: Present: supple, normal ROM - Respiratory Respiratory effort: normal Respiratory: bilateral: CTA - Cardiovascular Rhythm: regular Heart Sounds: Present: S1 & S2. Absent: gallop, rub - Extremities Extremities: no ischemia, No edema, Full ROM - Abdominal General gastrointestinal: soft, non-tender, non-distended, normal bowel sounds - Integumentary Integumentary: Present: clear, warm, dry - Neurologic Neurologic: CNII-XII intact, moves all extremities Results - Labs CBC & Chem 7: 01/30/18 11:18 02/03/18 03:14 Labs: Laboratory Last Values WBC 7.3 K/mm3 (4.5-11.0) 01/30/18 11:18 RBC 4.07 M/mm3 (3.65-5.03) 01/30/18 11:18 Hgb 12.5 gm/dl (10.1-14.3) 01/30/18 11:18 Hct 36.0 % (30.3-42.9) 01/30/18 11:18 MCV 88 fl (79-97) 01/30/18 11:18 MCH 31 pg (28-32) 01/30/18 11:18 MCHC 35 % (30-34) H 01/30/18 11:18 RDW 13.7 % (13.2-15.2) 01/30/18 11:18 Plt Count 343 K/mm3 (140-440) 01/30/18 11:18 Lymph % (Auto) 19.7 % (13.4-35.0) 01/30/18 04:47 [place] % (Auto) 7.6 % (0.0-7.3) H 01/30/18 04:47 Eos % (Auto) 2.3 % (0.0-4.3) 01/30/18 04:47 Baso % (Auto) 0.4 % (0.0-1.8) 01/30/18 04:47 Lymph # 1.4 K/mm3 (1.2-5.4) 01/30/18 04:47 [place] # 0.6 K/mm3 (0.0-0.8) 01/30/18 04:47 Eos # 0.2 K/mm3 (0.0-0.4) 01/30/18 04:47 Baso # 0.0 K/mm3 (0.0-0.1) 01/30/18 04:47 Seg Neutrophils % 70.0 % (40.0-70.0) 01/30/18 04:47 Seg Neutrophils # 5.1 K/mm3 (1.8-7.7) 01/30/18 04:47 Sodium 138 mmol/L (137-145) 02/03/18 03:14 Potassium 3.4 mmol/L (3.6-5.0) L 02/03/18 03:14 Chloride 95.4 mmol/L (98-107) L 02/03/18 03:14 Carbon Dioxide 31 mmol/L (22-30) H 02/03/18 03:14 Anion Gap 15 mmol/L 02/03/18 03:14 BUN 12 mg/dL (7-17) 02/03/18 03:14 Creatinine 0.2 mg/dL (0.7-1.2) L 02/03/18 03:14 Estimated GFR > 60 ml/min 02/03/18 03:14 BUN/Creatinine Ratio 60 % 02/03/18 03:14 Glucose 136 mg/dL (65-100) H 02/03/18 03:14 Calcium 8.8 mg/dL (8.4-10.2) 02/03/18 03:14 Phosphorus 2.70 mg/dL (2.5-4.5) D 09/24/18 03:14 Magnesium 2.10 mg/dL (1.7-2.3) 02/03/18 03:14 Total Bilirubin 0.60 mg/dL (0.1-1.2) 01/30/18 11:18 AST 16 units/L (5-40) 01/30/18 11:18 ALT 11 units/L (7-56) 01/30/18 11:18 Alkaline Phosphatase 80 units/L (35-129) 01/30/18 11:18 Total Protein 6.3 g/dL (6.3-8.2) 01/30/18 11:18 Albumin 3.7 g/dL (3.9-5) L 01/30/18 11:18 Albumin/Globulin Ratio 1.4 % 01/30/18 11:18 Lipase 79 units/L (13-60) H 01/26/18 01:07 Urine Color Yellow (Yellow) 01/26/18 03:40 Urine Turbidity Clear (Clear) 01/26/18 03:40 Urine pH 6.0 (5.0-7.0) 01/26/18 03:40 Ur Specific [place] 1.038 (1.003-1.030) H 01/26/18 03:40 Urine Protein <15 mg/dl mg/dL (Negative) 01/26/18 03:40 Urine Glucose (UA) Neg mg/dL (Negative) 01/26/18 03:40 Urine Ketones 80 mg/dL (Negative) 01/26/18 03:40 Urine Blood Neg (Negative) 01/26/18 03:40 Urine Nitrite Neg (Negative) 01/26/18 03:40 Urine Bilirubin Neg (Negative) 01/26/18 03:40 Urine Urobilinogen 2.0 mg/dL (<2.0) 01/26/18 03:40 Ur Leukocyte Esterase Neg (Negative) 01/26/18 03:40 Urine WBC (Auto) 1.0 /HPF (0.0-6.0) 01/26/18 03:40 Urine RBC (Auto) 3.0 /HPF (0.0-6.0) 01/26/18 03:40 U Epithel Cells (Auto) 1.0 /HPF (0-13.0) 01/26/18 03:40 Urine Mucus 1+ /HPF 01/26/18 03:40
[2018-02-03] MEDS ORDERED: K-DUR PO NR (09:00)
--- NOTE | 2018-02-03 09:20 | Gastroenterology Progress Note ---
Assessment and Plan 1. Intractable nausea/vomiting 2. Unintentional weight loss 3. Abnormal gastric mucosa in antrum/mass - r/o malignancy -path results pending -cont TPN and supportive care w/ anti-emetics and CLD as tolerated -further management following path results. if non-diagnostic, likely will need EUS Subjective Date of service: 02/03/18 Principal diagnosis: intractable nausea/vomiting, weight loss Interval history: Patient w/o acute distress. Reports continued abdominal discomfort and nausea. No vomiting this am but states she had 1 episode yesterday. Po intake remains low with only tolerating sips of liquids. Objective - Constitutional Vitals: Temp Pulse Resp BP Pulse Ox 98.2 F 83 18 113/72 94 02/03/18 08:11 02/03/18 08:11 02/03/18 08:11 02/03/18 08:11 02/03/18 08:11 General appearance: no acute distress, other (ill, thin appearing) - Respiratory Respiratory: bilateral: CTA (anterior) - Cardiovascular Rhythm: regular Heart Sounds: Present: S1 & S2 - Gastrointestinal General gastrointestinal: Present: soft, tender (slightly generalized TTP), non- distended, normal bowel sounds - Labs CBC & Chem 7: 01/30/18 11:18 02/03/18 03:14 Labs: Laboratory Results - last 24 hr 02/03/18 03:14 Sodium 138 Potassium 3.4 L Chloride 95.4 L Carbon Dioxide 31 H Anion Gap 15 BUN 12 Creatinine 0.2 L Estimated GFR > 60 BUN/Creatinine Ratio 60 Glucose 136 H Calcium 8.8 Phosphorus 2.70 D Magnesium 2.10
--- NOTE | 2018-02-03 11:41 | XRay Report ---
Portable chest: Line placement. A right PICC line is in place with the tip at the low SVC. No complication identified. The lungs are clear the mediastinal contours grossly normal. Of note is a left-sided PICC line with the tip is at the level of the axilla. Impressions: Bilateral PICC lines.
[2018-02-03] MEDS: PROTONIX IV SCH (13:22)
[2018-02-03] MEDS: K-DUR PO SCH (13:26)
[2018-02-03] MEDS: MEGACE PO SCH (13:26)
--- NOTE | 2018-02-03 13:40 | Query- Nutrition ---
Delaney Tolbert___[place] Date:__02/03/2018 [employer] Operator/CDS:____brianda/ Phone#: [phone] Exercise your independent professional judgment when responding to query. Questions asked do not imply a particular answer is desired or expected. We greatly appreciate your clarification on this issue. Clinical Documentation States: Assessment and plan: Hypokalemia Replete as needed Hypomagnesemia. Replete magnesium. Intractable Nausea and vomiting Protein calorie malnutrition. Cont. TPN. Clinical Findings Show: BMI: 15.4 Albumin: 3.7 Please select the most appropriate option 3 [ ] Mild Malnutrition [ ] Moderate Malnutrition [ ] Severe Malnutrition Serum Albumin 2.8 to 3.4 g/dl or Pre-albumin 5 to 17 mg/dl1,2 Inadequate nutritional intake1,2,3,4 NPO > 5 days Weight loss: 5% in 1 month or 7.5% in 3 months or 10% in 6 months1, 3,4 BMI 16 to 18.4 or Weight <90% of ideal body weight1,2,3,4 Serum Albumin < 2.8 g/ dl1,2 Lymphocytes < 1500/ L2 Inadequate nutritional intake3, high stress e.g. major trauma, sepsis,pancreatitis, [place] etc. Decubitus ulcers1,2, , skin breakdown2, easy hair pluckability2 Weight <80% standard for height2 Triceps skin fold <3 mm2 Mid-arm muscle circumference <15 cm2 Creatinine-height index <60% standard2 [ ] Cachexia [ ] Emaciated w/Malnutrition [ ] Other: [ ] Unable to determine [ ] Comment/Explanation: Present on Admission: [ ] Yes (Y) [ ] Clinically undeterminable (W) [ ] No ( N) Please also document response in your Progress Notes and/or Discharge Summary and indicate if the condition was present on admission. MTDD
--- NOTE | 2018-02-03 14:42 | Progress Note ---
Assessment and Plan - Patient Problems (1) Nausea and vomiting Current Visit: Yes Status: Acute Plan to address problem: Pt stable. Her main issue is N/V. she got very dehydrated which contibuted to her having to return to ED. Now that she has gotten some fluid and had a bowel movement with the enema, she feels better. Abdominal pain is not a significant issue. She has very little pain. CT and LFTs unremarkable, except for stool in rectum. No signs of post-op complication. (01/26) appreciate GI assistance. Await results of biopsy. Discussed with daughter that we are worried about the potential for cancer in the stomach. Rec: 1) nausea meds prn 2) Pt would like to continue the rice soup 3) TPN for now 4) Replace K - improved. replace per protocol 5) Stool softener - d/c'd due to #4. Pt would like prn enema 6) ambulate Please call with questions. Will follow peripherally. time=10min Subjective Date of service: 02/03/18 Patient Reports: Positive: no new complaints, feels better (no N/V overnight. Nausea seems less. Tolerating rice soup) Objective Vital Signs - 12hr 02/03/18 02/03/18 03:02 08:11 Temperature 97.4 F L 98.2 F Pulse Rate 75 83 Respiratory 16 18 Rate Blood Pressure 122/73 113/72 O2 Sat by Pulse 96 94 Oximetry - General physical appearance no distress, no pain, other (looks a little better) - Respiratory normal expansion, normal respiratory effort - Abdomen soft, not tender, not distended - Labs 01/30/18 11:18 02/03/18 03:14 Diabetes panel 02/03/18 Range/Units 03:14 Sodium 138 (137-145) mmol/L Potassium 3.4 L (3.6-5.0) mmol/L Chloride 95.4 L (98-107) mmol/L Carbon Dioxide 31 H (22-30) mmol/L BUN 12 (7-17) mg/dL Creatinine 0.2 L (0.7-1.2) mg/dL Glucose 136 H (65-100) mg/dL Calcium 8.8 (8.4-10.2) mg/dL Calcium panel 02/03/18 Range/Units 03:14 Calcium 8.8 (8.4-10.2) mg/dL Phosphorus 2.70 D (2.5-4.5) mg/dL Pituitary panel 02/03/18 Range/Units 03:14 Sodium 138 (137-145) mmol/L Potassium 3.4 L (3.6-5.0) mmol/L Chloride 95.4 L (98-107) mmol/L Carbon Dioxide 31 H (22-30) mmol/L BUN 12 (7-17) mg/dL Creatinine 0.2 L (0.7-1.2) mg/dL Glucose 136 H (65-100) mg/dL Calcium 8.8 (8.4-10.2) mg/dL Adrenal panel 02/03/18 Range/Units 03:14 Sodium 138 (137-145) mmol/L Potassium 3.4 L (3.6-5.0) mmol/L Chloride 95.4 L (98-107) mmol/L Carbon Dioxide 31 H (22-30) mmol/L BUN 12 (7-17) mg/dL Creatinine 0.2 L (0.7-1.2) mg/dL Glucose 136 H (65-100) mg/dL Calcium 8.8 (8.4-10.2) mg/dL
[2018-02-03] MEDS ORDERED: TPN ADULT 2,016 ML IV SCH (20:00)
[2018-02-04 07:05] LABS: Basophils % (Auto) 0.4 % (0.0-1.8); Eosinophils # (Auto) 0.1 K/mm3 (0.0-0.4); Eosinophils % (Auto) 1.1 % (0.0-4.3); Hemoglobin 13.3 gm/dl (10.1-14.3); Lymphocytes # (Auto) 1.7 K/mm3 (1.2-5.4); Lymphocytes % (Auto) 25.4 % (13.4-35.0); Mean Corpuscular HGB Conc 33 % (30-34); Mean Corpuscular Hemoglobin 30 pg (28-32); Mean Corpuscular Volume 90 fl (79-97); Monocytes # (Auto) 0.8 K/mm3 (0.0-0.8); Monocytes % (Auto) 11.3 % (0.0-7.3); Platelet Count 298 K/mm3 (140-440); Red Blood Count 4.46 M/mm3 (3.65-5.03); Red Cell Distribution Width 14.1 % (13.2-15.2)
--- NOTE | 2018-02-04 07:23 | Progress Note ---
Assessment and Plan Assessment and plan: Hypokalemia - on potassium Hypomagnesemia - repleted Intractable Nausea and vomiting - EGD revealed Markedly abnormal mucosa in gastric antrum (appeared nodular and adenomatous); cold bx taken. No evidence of gastric outlet obstruction. Continue Reglan. - Pending the biopsy result Protein calorie malnutrition. - Cont. TPN. Added Megace. - Waiting GI recommendation for advancing diet and possible decrease or discontinue TPN. Postoperative abdominal pain - Abdominal pain has resolved. Management plans discussed with the daughter. History Interval history: Patient was seen and evaluated this morning, minimal abdominal pain, patient didn't have any nausea or vomiting for the last 2 days. Patient tolerated clear liquid diet. Hospitalist Physical - Physical exam Narrative exam: Not in cardiopulmonary distress. The patient is emaciated. Vital signs as documented. Head exam is unremarkable. No scleral icterus . Neck is without jugular venous distension, thyromegaly, or carotid bruits. Lungs are clear to auscultation. Cardiac exam reveals regular rate and Rhythm. First and second heart sounds normal. No murmurs, rubs or gallops. Abdominal exam reveals normal bowel sounds, no masses, no organomegaly and no aortic enlargement. Extremities are nonedematous and both femoral and pedal pulses are normal. 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 No focal weakness. - Constitutional Vitals: Temp Pulse Resp BP Pulse Ox 98.0 F 79 18 116/68 96 02/04/18 02:02 02/04/18 02:02 02/04/18 02:02 02/04/18 02:02 02/04/18 02:02 General appearance: Present: no acute distress, well-nourished Results - Labs CBC & Chem 7: 02/04/18 06:57 02/04/18 11:30 Labs: Laboratory Last Values WBC 6.6 K/mm3 (4.5-11.0) 02/04/18 06:57 RBC 4.46 M/mm3 (3.65-5.03) 02/04/18 06:57 Hgb 13.3 gm/dl (10.1-14.3) 02/04/18 06:57 Hct 40.0 % (30.3-42.9) 02/04/18 06:57 MCV 90 fl (79-97) 02/04/18 06:57 MCH 30 pg (28-32) 02/04/18 06:57 MCHC 33 % (30-34) 02/04/18 06:57 RDW 14.1 % (13.2-15.2) 02/04/18 06:57 Plt Count 298 K/mm3 (140-440) 02/04/18 06:57 Lymph % (Auto) 25.4 % (13.4-35.0) 02/04/18 06:57 [place] % (Auto) 11.3 % (0.0-7.3) H 02/04/18 06:57 Eos % (Auto) 1.1 % (0.0-4.3) 02/04/18 06:57 Baso % (Auto) 0.4 % (0.0-1.8) 02/04/18 06:57 Lymph # 1.7 K/mm3 (1.2-5.4) 02/04/18 06:57 [place] # 0.8 K/mm3 (0.0-0.8) 02/04/18 06:57 Eos # 0.1 K/mm3 (0.0-0.4) 02/04/18 06:57 Baso # 0.0 K/mm3 (0.0-0.1) 02/04/18 06:57 Seg Neutrophils % 61.8 % (40.0-70.0) 02/04/18 06:57 Seg Neutrophils # 4.1 K/mm3 (1.8-7.7) 02/04/18 06:57 Sodium 138 mmol/L (137-145) 02/03/18 03:14 Potassium 3.4 mmol/L (3.6-5.0) L 02/03/18 03:14 Chloride 95.4 mmol/L (98-107) L 02/03/18 03:14 Carbon Dioxide 31 mmol/L (22-30) H 02/03/18 03:14 Anion Gap 15 mmol/L 02/03/18 03:14 BUN 12 mg/dL (7-17) 02/03/18 03:14 Creatinine 0.2 mg/dL (0.7-1.2) L 02/03/18 03:14 Estimated GFR > 60 ml/min 02/03/18 03:14 BUN/Creatinine Ratio 60 % 02/03/18 03:14 Glucose 136 mg/dL (65-100) H 02/03/18 03:14 Calcium 8.8 mg/dL (8.4-10.2) 02/03/18 03:14 Phosphorus 2.70 mg/dL (2.5-4.5) D 02/03/18 03:14 Magnesium 2.10 mg/dL (1.7-2.3) 02/03/18 03:14 Total Bilirubin 0.60 mg/dL (0.1-1.2) 01/30/18 11:18 AST 16 units/L (5-40) 01/30/18 11:18 ALT 11 units/L (7-56) 01/30/18 11:18 Alkaline Phosphatase 80 units/L (35-129) 01/30/18 11:18 Total Protein 6.3 g/dL (6.3-8.2) 01/30/18 11:18 Albumin 3.7 g/dL (3.9-5) L 01/30/18 11:18 Albumin/Globulin Ratio 1.4 % 01/30/18 11:18 Lipase 79 units/L (13-60) H 01/26/18 01:07 Urine Color Yellow (Yellow) 01/26/18 03:40 Urine Turbidity Clear (Clear) 01/26/18 03:40 Urine pH 6.0 (5.0-7.0) 01/26/18 03:40 Ur Specific [place] 1.038 (1.003-1.030) H 01/26/18 03:40 Urine Protein <15 mg/dl mg/dL (Negative) 01/26/18 03:40 Urine Glucose (UA) Neg mg/dL (Negative) 01/26/18 03:40 Urine Ketones 80 mg/dL (Negative) 01/26/18 03:40 Urine Blood Neg (Negative) 01/26/18 03:40 Urine Nitrite Neg (Negative) 01/26/18 03:40 Urine Bilirubin Neg (Negative) 01/26/18 03:40 Urine Urobilinogen 2.0 mg/dL (<2.0) 01/26/18 03:40 Ur Leukocyte Esterase Neg (Negative) 01/26/18 03:40 Urine WBC (Auto) 1.0 /HPF (0.0-6.0) 01/26/18 03:40 Urine RBC (Auto) 3.0 /HPF (0.0-6.0) 01/26/18 03:40 U Epithel Cells (Auto) 1.0 /HPF (0-13.0) 01/26/18 03:40 Urine Mucus 1+ /HPF 01/26/18 03:40
[2018-02-04 07:27] LABS: BUN/Creatinine Ratio 70; Blood Urea Nitrogen 14 mg/dL (7-17); Calcium 9.2 mg/dL (8.4-10.2); Hemolysis Index 2
[2018-02-04] MEDS: PROTONIX IV SCH (10:32)
[2018-02-04] MEDS: HEPARIN SUB-Q SCH ×2 (10:32→21:53)
[2018-02-04] MEDS: K-DUR PO SCH (10:33)
[2018-02-04] MEDS: MEGACE PO SCH (10:33)
[2018-02-04 12:14] LABS: BUN/Creatinine Ratio 70; Blood Urea Nitrogen 14 mg/dL (7-17); Calcium 8.9 mg/dL (8.4-10.2); Hemolysis Index 1
--- NOTE | 2018-02-04 15:00 | Gastroenterology Progress Note ---
<ZITAISRAEL ReynosoNick - Last Filed: 02/04/18 15:00> Assessment and Plan 1. Intractable nausea/vomiting 2. Unintentional weight loss 3. Abnormal gastric mucosa in antrum/mass - r/o malignancy -path results show moderate active chronic gastritis w/ extensive intestinal metaplasia and vascular congestion but no malignancy or H. pylori -clinically, patient reports feeling better today with abd pain and nausea improved. No vomiting overnight or this am. Tolerating liquids and some sips of soup. -will advance diet to full liquids -recommend a GES for further evaluation to r/o other causes of persistent N/V -may also need EUS as an outpatient vs repeat EGD with additional biopsies -continue TPN and supportive care -will follow Subjective Date of service: 02/04/18 Principal diagnosis: intractable nausea/vomiting, weight loss Interval history: Patient w/o acute distress and family at bedside. Reports feeling a little better today with abd pain and nausea improved. No vomiting overnight or this am. Tolerating liquids and soup. Objective - Constitutional Vitals: Temp Pulse Resp BP Pulse Ox 98.4 F 91 H 16 101/58 95 02/04/18 13:37 02/04/18 13:37 02/04/18 13:37 02/04/18 13:37 02/04/18 13:37 General appearance: no acute distress, other (thin appearing) - Respiratory Respiratory: bilateral: CTA (anterior) - Cardiovascular Rhythm: regular Heart Sounds: Present: S1 & S2 - Gastrointestinal General gastrointestinal: Present: soft, non-tender, non-distended, normal bowel sounds - Labs CBC & Chem 7: 02/04/18 06:57 02/04/18 11:30 Labs: Laboratory Results - last 24 hr 02/04/18 02/04/18 02/04/18 06:57 06:57 11:30 WBC 6.6 RBC 4.46 Hgb 13.3 Hct 40.0 MCV 90 MCH 30 MCHC 33 RDW 14.1 Plt Count 298 Lymph % (Auto) 25.4 [place] % (Auto) 11.3 H Eos % (Auto) 1.1 Baso % (Auto) 0.4 Lymph # 1.7 [place] # 0.8 Eos # 0.1 Baso # 0.0 Seg Neutrophils % 61.8 Seg Neutrophils # 4.1 Sodium 135 L 133 L Potassium 5.1 H D 4.8 Chloride 98.0 96.0 L Carbon Dioxide 28 27 Anion Gap 14 15 BUN 14 14 Creatinine 0.2 L 0.2 L Estimated GFR > 60 > 60 BUN/Creatinine Ratio 70 70 Glucose 105 H 91 Calcium 9.2 8.9 Phosphorus 4.30 D Magnesium 2.10 <JAQUELINE MARIANO - Last Filed: 02/04/18 15:56> Assessment and Plan Pt seen and examined. Agree with note above. Non-diagnostic path from EGD. Tolerating some clears. On TPN. Will obtain GES. Will likely need EUS for diagnostic purposes and to rule out malignancy. If she passes GES, can try to advance diet and wean off TPN. If she can't tolerate advanced diet, then discharge home on TPN with outpatient EUS. Objective - Constitutional Vitals: Temp Pulse Resp BP Pulse Ox 98.4 F 91 H 16 101/58 95 02/04/18 13:37 02/04/18 13:37 02/04/18 13:37 02/04/18 13:37 02/04/18 13:37 - Labs CBC & Chem 7: 02/04/18 06:57 02/04/18 11:30 Labs: Laboratory Results - last 24 hr 02/04/18 02/04/18 02/04/18 06:57 06:57 11:30 WBC 6.6 RBC 4.46 Hgb 13.3 Hct 40.0 MCV 90 MCH 30 MCHC 33 RDW 14.1 Plt Count 298 Lymph % (Auto) 25.4 [place] % (Auto) 11.3 H Eos % (Auto) 1.1 Baso % (Auto) 0.4 Lymph # 1.7 [place] # 0.8 Eos # 0.1 Baso # 0.0 Seg Neutrophils % 61.8 Seg Neutrophils # 4.1 Sodium 135 L 133 L Potassium 5.1 H D 4.8 Chloride 98.0 96.0 L Carbon Dioxide 28 27 Anion Gap 14 15 BUN 14 14 Creatinine 0.2 L 0.2 L Estimated GFR > 60 > 60 BUN/Creatinine Ratio 70 70 Glucose 105 H 91 Calcium 9.2 8.9 Phosphorus 4.30 D Magnesium 2.10
[2018-02-04] MEDS ORDERED: TPN ADULT 1,800 ML IV SCH (20:00)
--- NOTE | 2018-02-05 06:50 | Progress Note ---
Assessment and Plan Assessment and plan: 72 year old female presented to the emergency department with complaints of nausea vomiting, abdominal pain and constipation. Patient had laparoscopic cholecystectomy 4-5 days before presentation. Hypokalemia - Repleted and corrected Hypomagnesemia - repleted and corrected Intractable Nausea and vomiting - EGD revealed Markedly abnormal mucosa in gastric antrum (appeared nodular and adenomatous); cold bx taken. No evidence of gastric outlet obstruction. - path results show moderate active chronic gastritis w/ extensive intestinal metaplasia and vascular congestion but no malignancy or H. pylori - Patient to have GES - GI recommended to advance diet if tolerated and continue TPN Protein calorie malnutrition. - Cont. TPN - On Megace Postoperative abdominal pain - Abdominal pain has resolved. Management plans discussed with the daughter. Disposition - Per GI History Interval history: Patient was seen and evaluated this morning, minimal abdominal pain, patient didn't have any nausea or vomiting for the last 2 days. Patient tolerated soup. Hospitalist Physical - Physical exam Narrative exam: Not in cardiopulmonary distress. The patient is emaciated. Vital signs as documented. Head exam is unremarkable. No scleral icterus . Neck is without jugular venous distension, thyromegaly, or carotid bruits. Lungs are clear to auscultation. Cardiac exam reveals regular rate and Rhythm. First and second heart sounds normal. No murmurs, rubs or gallops. Abdominal exam reveals normal bowel sounds, no masses, no organomegaly and no aortic enlargement. Extremities are wasted. DOPSTER: Alert and oriented 3. No focal weakness. - Constitutional Vitals: Temp Pulse Resp BP Pulse Ox 97.7 F 88 18 97/60 96 02/05/18 01:50 02/05/18 01:50 02/05/18 01:50 02/05/18 01:50 02/05/18 01:50 General appearance: Present: no acute distress, well-nourished Results - Labs CBC & Chem 7: 02/04/18 06:57 02/05/18 Unknown Labs: Laboratory Last Values WBC 6.6 K/mm3 (4.5-11.0) 02/04/18 06:57 RBC 4.46 M/mm3 (3.65-5.03) 02/04/18 06:57 Hgb 13.3 gm/dl (10.1-14.3) 02/04/18 06:57 Hct 40.0 % (30.3-42.9) 02/04/18 06:57 MCV 90 fl (79-97) 02/04/18 06:57 MCH 30 pg (28-32) 02/04/18 06:57 MCHC 33 % (30-34) 02/04/18 06:57 RDW 14.1 % (13.2-15.2) 02/04/18 06:57 Plt Count 298 K/mm3 (140-440) 02/04/18 06:57 Lymph % (Auto) 25.4 % (13.4-35.0) 02/04/18 06:57 [place] % (Auto) 11.3 % (0.0-7.3) H 02/04/18 06:57 Eos % (Auto) 1.1 % (0.0-4.3) 02/04/18 06:57 Baso % (Auto) 0.4 % (0.0-1.8) 02/04/18 06:57 Lymph # 1.7 K/mm3 (1.2-5.4) 02/04/18 06:57 [place] # 0.8 K/mm3 (0.0-0.8) 02/04/18 06:57 Eos # 0.1 K/mm3 (0.0-0.4) 02/04/18 06:57 Baso # 0.0 K/mm3 (0.0-0.1) 02/04/18 06:57 Seg Neutrophils % 61.8 % (40.0-70.0) 02/04/18 06:57 Seg Neutrophils # 4.1 K/mm3 (1.8-7.7) 02/04/18 06:57 Sodium 133 mmol/L (137-145) L 02/04/18 11:30 Potassium 4.8 mmol/L (3.6-5.0) 02/04/18 11:30 Chloride 96.0 mmol/L (98-107) L 02/04/18 11:30 Carbon Dioxide 27 mmol/L (22-30) 02/04/18 11:30 Anion Gap 15 mmol/L 02/04/18 11:30 BUN 14 mg/dL (7-17) 02/04/18 11:30 Creatinine 0.2 mg/dL (0.7-1.2) L 02/04/18 11:30 Estimated GFR > 60 ml/min 02/04/18 11:30 BUN/Creatinine Ratio 70 % 02/04/18 11:30 Glucose 91 mg/dL (65-100) 02/04/18 11:30 Calcium 8.9 mg/dL (8.4-10.2) 02/04/18 11:30 Phosphorus 4.30 mg/dL (2.5-4.5) D 02/04/18 06:57 Magnesium 2.10 mg/dL (1.7-2.3) 02/04/18 06:57 Total Bilirubin 0.60 mg/dL (0.1-1.2) 01/30/18 11:18 AST 16 units/L (5-40) 01/30/18 11:18 ALT 11 units/L (7-56) 01/30/18 11:18 Alkaline Phosphatase 80 units/L (35-129) 01/30/18 11:18 Total Protein 6.3 g/dL (6.3-8.2) 01/30/18 11:18 Albumin 3.7 g/dL (3.9-5) L 01/30/18 11:18 Albumin/Globulin Ratio 1.4 % 01/30/18 11:18 Lipase 79 units/L (13-60) H 01/26/18 01:07 Urine Color Yellow (Yellow) 01/26/18 03:40 Urine Turbidity Clear (Clear) 01/26/18 03:40 Urine pH 6.0 (5.0-7.0) 01/26/18 03:40 Ur Specific [place] 1.038 (1.003-1.030) H 01/26/18 03:40 Urine Protein <15 mg/dl mg/dL (Negative) 01/26/18 03:40 Urine Glucose (UA) Neg mg/dL (Negative) 01/26/18 03:40 Urine Ketones 80 mg/dL (Negative) 01/26/18 03:40 Urine Blood Neg (Negative) 01/26/18 03:40 Urine Nitrite Neg (Negative) 01/26/18 03:40 Urine Bilirubin Neg (Negative) 01/26/18 03:40 Urine Urobilinogen 2.0 mg/dL (<2.0) 01/26/18 03:40 Ur Leukocyte Esterase Neg (Negative) 01/26/18 03:40 Urine WBC (Auto) 1.0 /HPF (0.0-6.0) 01/26/18 03:40 Urine RBC (Auto) 3.0 /HPF (0.0-6.0) 01/26/18 03:40 U Epithel Cells (Auto) 1.0 /HPF (0-13.0) 01/26/18 03:40 Urine Mucus 1+ /HPF 01/26/18 03:40
[2018-02-05 06:51] LABS: Hemolysis Index 3
[2018-02-05 07:23] LABS: Blood Urea Nitrogen TNR mg/dL (7-17)
[2018-02-05 07:24] LABS: BUN/Creatinine Ratio TNR; Calcium TNR mg/dL (8.4-10.2)
[2018-02-05] MEDS ORDERED: CALCIUM GLUCONATE 2,000 MG in NACL 0.9% 100 ML IV ONE (07:25)
[2018-02-05] MEDS: MEGACE PO SCH (09:28)
[2018-02-05] MEDS: PROTONIX IV SCH (09:29)
[2018-02-05] MEDS: HEPARIN SUB-Q SCH ×2 (09:30→21:28)
--- NOTE | 2018-02-05 09:37 | Progress Note ---
Assessment and Plan - Patient Problems (1) Nausea and vomiting Current Visit: Yes Status: Acute Plan to address problem: Pt stable. Her main issue is N/V. she got very dehydrated which contibuted to her having to return to ED. Now that she has gotten some fluid and had a bowel movement with the enema, she feels better. Abdominal pain is not a significant issue. She has very little pain. CT and LFTs unremarkable, except for stool in rectum. No signs of post-op complication. (01/26) appreciate GI assistance. REviewed bx results. Pt very weak at this point. May benefit from PT Rec: 1) nausea meds prn 2) Pt would like to continue the rice soup. Advance as tolerated. 3) TPN for now 4) Replace K - improved. replace per protocol 5) ambulate - PT consult Please call with questions. Will follow peripherally. time=10min Subjective Date of service: 02/05/18 Patient Reports: Positive: feels better (able to eat more. No n/v for last few days) Objective Vital Signs - 12hr 02/04/18 02/05/18 02/05/18 22:00 01:50 07:53 Temperature 97.7 F 97.5 F L Pulse Rate 88 88 Pulse Rate [ 92 H Left Apical] Respiratory 20 18 16 Rate Blood Pressure 97/60 110/74 O2 Sat by Pulse 98 96 97 Oximetry - General physical appearance no distress, no pain, other (looks better. appears to have more energy) - Eyes normal occular movement - Respiratory normal expansion, normal respiratory effort - Labs 02/04/18 06:57 02/05/18 Unknown Diabetes panel 02/04/18 02/05/18 02/05/18 Range/Units 11:30 07:47 Unknown Sodium 133 L TNR (137-145) mmol/L Potassium 4.8 5.0 TNR (3.6-5.0) mmol/L Chloride 96.0 L TNR (98-107) mmol/L Carbon Dioxide 27 TNR (22-30) mmol/L BUN 14 TNR (7-17) mg/dL Creatinine 0.2 L TNR (0.7-1.2) mg/dL Glucose 91 TNR (65-100) mg/dL Calcium 8.9 TNR (8.4-10.2) mg/dL Calcium panel 02/04/18 02/05/18 Range/Units 11:30 Unknown Calcium 8.9 TNR (8.4-10.2) mg/dL Phosphorus TNR Pituitary panel 02/04/18 02/05/18 02/05/18 Range/Units 11:30 07:47 Unknown Sodium 133 L TNR (137-145) mmol/L Potassium 4.8 5.0 TNR (3.6-5.0) mmol/L Chloride 96.0 L TNR (98-107) mmol/L Carbon Dioxide 27 TNR (22-30) mmol/L BUN 14 TNR (7-17) mg/dL Creatinine 0.2 L TNR (0.7-1.2) mg/dL Glucose 91 TNR (65-100) mg/dL Calcium 8.9 TNR (8.4-10.2) mg/dL Adrenal panel 02/04/18 02/05/18 02/05/18 Range/Units 11:30 07:47 Unknown Sodium 133 L TNR (137-145) mmol/L Potassium 4.8 5.0 TNR (3.6-5.0) mmol/L Chloride 96.0 L TNR (98-107) mmol/L Carbon Dioxide 27 TNR (22-30) mmol/L BUN 14 TNR (7-17) mg/dL Creatinine 0.2 L TNR (0.7-1.2) mg/dL Glucose 91 TNR (65-100) mg/dL Calcium 8.9 TNR (8.4-10.2) mg/dL
[2018-02-05 10:21] LABS: BUN/Creatinine Ratio 70; Blood Urea Nitrogen 14 mg/dL (7-17); Calcium 9.1 mg/dL (8.4-10.2); Hemolysis Index 24
--- NOTE | 2018-02-05 11:37 | Gastroenterology Progress Note ---
<ZITAISRAEL ReynosoNick - Last Filed: 02/05/18 11:38> Assessment and Plan 1. Intractable nausea/vomiting 2. Unintentional weight loss 3. Abnormal gastric mucosa in antrum/mass - r/o malignancy -path results non-diagnositc (shows moderate active chronic gastritis w/ extensive intestinal metaplasia and vascular congestion but no malignancy or H. pylori) -clinically, patient is feeling better with abd pain improved and N/V resolved. Tolerating liquids. -GES pending for today, if she passes okay to advance diet to mechanical soft and wean off TPN -if she can't tolerate advanced diet, then discharge home on TPN with recommended outpatient EUS to r/o malignancy -continue supportive care Subjective Date of service: 02/05/18 Principal diagnosis: intractable nausea/vomiting, weight loss Interval history: No acute events or distress overnight. Patient reports feeling better. No N/V. Tolerating liquids. Objective - Constitutional Vitals: Temp Pulse Resp BP Pulse Ox 97.5 F L 91 H 16 110/74 97 02/05/18 07:53 02/05/18 10:00 02/05/18 10:00 02/05/18 07:53 02/05/18 10:00 General appearance: no acute distress, other (thin appering) - Respiratory Respiratory: bilateral: CTA - Cardiovascular Rhythm: regular Heart Sounds: Present: S1 & S2 - Gastrointestinal General gastrointestinal: Present: soft, non-tender, non-distended, normal bowel sounds - Labs CBC & Chem 7: 02/04/18 06:57 02/05/18 Unknown Labs: Laboratory Results - last 24 hr 02/04/18 02/05/18 02/05/18 11:30 07:32 07:47 Sodium 133 L Potassium 4.8 5.0 Chloride 96.0 L Carbon Dioxide 27 Anion Gap 15 BUN 14 Creatinine 0.2 L Estimated GFR > 60 BUN/Creatinine Ratio 70 Glucose 91 POC Glucose 110 H Calcium 8.9 Phosphorus Magnesium Triglycerides 02/05/18 02/05/18 02/05/18 07:47 07:47 Unknown Sodium 132 L TNR Potassium 5.1 H TNR Chloride 94.9 L TNR Carbon Dioxide 26 TNR Anion Gap 16 TNR BUN 14 TNR Creatinine 0.2 L TNR Estimated GFR > 60 TNR BUN/Creatinine Ratio 70 TNR Glucose 114 H TNR POC Glucose Calcium 9.1 TNR Phosphorus 4.80 H TNR Magnesium TNR Triglycerides 73 <JAQUELINE MARIANO A - Last Filed: 02/05/18 23:16> Assessment and Plan Pt seen and examined. tolerating slowly advanced diet. hopefully she can cont to tolerate advancing of diet and can be weaned off of TPN. Once nutrition plan is determined and GES is completed, she can likely be discharged with outpatient f/u for EUS in [place]. Objective - Constitutional Vitals: Temp Pulse Resp BP Pulse Ox 97.3 F L 86 16 112/65 95 02/05/18 20:20 02/05/18 20:20 02/05/18 20:20 02/05/18 20:20 02/05/18 20:20 - Labs CBC & Chem 7: 02/04/18 06:57 02/05/18 Unknown Labs: Laboratory Results - last 24 hr 02/05/18 02/05/18 02/05/18 07:32 07:47 07:47 Sodium 132 L Potassium 5.0 5.1 H Chloride 94.9 L Carbon Dioxide 26 Anion Gap 16 BUN 14 Creatinine 0.2 L Estimated GFR > 60 BUN/Creatinine Ratio 70 Glucose 114 H POC Glucose 110 H Calcium 9.1 Phosphorus 4.80 H Magnesium Triglycerides 02/05/18 02/05/18 07:47 Unknown Sodium TNR Potassium TNR Chloride TNR Carbon Dioxide TNR Anion Gap TNR BUN TNR Creatinine TNR Estimated GFR TNR BUN/Creatinine Ratio TNR Glucose TNR POC Glucose Calcium TNR Phosphorus TNR Magnesium TNR Triglycerides 73
--- NOTE | 2018-02-05 14:50 | Query- Nutrition ---
Dear ___Tariq Date:___02/05/18 Senior Windows Administrator/CDS:____brianda Phone#: [phone] Exercise your independent professional judgment when responding to query. Questions asked do not imply a particular answer is desired or expected. We greatly appreciate your clarification on this issue. Clinical Documentation States: 72 year old female presented to the emergency department with complaints of nausea vomiting, abdominal pain and constipation. Patient had laparoscopic cholecystectomy 4-5 days before presentation. Hypokalemia - Repleted and corrected Hypomagnesemia - repleted and corrected Intractable Nausea and vomiting - EGD revealed Markedly abnormal mucosa in gastric antrum (appeared nodular and adenomatous); cold bx taken. No evidence of gastric outlet obstruction. - path results show moderate active chronic gastritis w/ extensive intestinal metaplasia and vascular congestion but no malignancy or H. pylori - Patient to have GES - GI recommended to advance diet if tolerated and continue TPN Protein calorie malnutrition. - Cont. TPN - On Megace Clinical Findings Show: BMI: 14.3 kg/m Patient on TPN Please select the most appropriate option 3 [ ] Mild Malnutrition [ ] Moderate Malnutrition [ x] Severe Malnutrition Serum Albumin 2.8 to 3.4 g/dl or Pre-albumin 5 to 17 mg/dl1,2 Inadequate nutritional intake1,2,3,4 NPO > 5 days Weight loss: 5% in 1 month or 7.5% in 3 months or 10% in 6 months1, 3,4 BMI 16 to 18.4 or Weight <90% of ideal body weight1,2,3,4 Serum Albumin < 2.8 g/ dl1,2 Lymphocytes < 1500/ L2 Inadequate nutritional intake3, high stress e.g. major trauma, sepsis,pancreatitis, [place] etc. Decubitus ulcers1,2, , skin breakdown2, easy hair pluckability2 Weight <80% standard for height2 Triceps skin fold <3 mm2 Mid-arm muscle circumference <15 cm2 Creatinine-height index <60% standard2 [ ] Cachexia [ x] Emaciated w/Malnutrition [ ] Other: [ ] Unable to determine [ ] Comment/Explanation: Present on Admission: [ x] Yes (Y) [ ] Clinically undeterminable (W) [ ] No (N) Please also document response in your Progress Notes and/or Discharge Summary and indicate if the condition was present on admission. MTDD
[2018-02-05] MEDS ORDERED: INTRALIPID 20% 250 ML IV SCH (20:00)
[2018-02-05] MEDS ORDERED: TPN ADULT IV SCH (20:00)
[2018-02-06 07:43] LABS: Alanine Aminotransferase 10 units/L (7-56); Albumin 3.5 g/dL (3.9-5); BUN/Creatinine Ratio 75; Blood Urea Nitrogen 15 mg/dL (7-17); Calcium 8.8 mg/dL (8.4-10.2); Hemolysis Index 9
--- NOTE | 2018-02-06 08:09 | Nuclear Medicine Report ---
NUCLEAR MEDICINE GASTRIC EMPTYING SCAN HISTORY: Intractable nausea and vomiting. FINDINGS: Anterior abdominal images were obtained for 90 minutes after ingestion of 1 mCi of technetium 99m sulfur cold in oatmeal. Half life for gastric emptying measures 43 minutes. No scintigraphic evidence for reflux disease. IMPRESSION: Normal gastric emptying.
[2018-02-06] MEDS: HEPARIN SUB-Q SCH ×2 (09:10→21:15)
[2018-02-06] MEDS: PROTONIX IV SCH (09:13)
[2018-02-06] MEDS: MEGACE PO SCH (09:14)
--- NOTE | 2018-02-06 12:09 | Discharge Summary ---
Providers - Providers Date of Admission: 01/26/18 06:50 Attending physician: KEY GALLARDO MD 01/26/18 08:39 Consult to Physician [CONS] Routine Comment: called answ. 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 Consulting Provider: STEVE HINES Physician Instructions: Reason For Exam: intractable nausea/vomiting 02/01/18 10:56 Consult to Dietitian/Nutrition [CONS] Routine Physician Instructions: Reason For Exam: Reason for Consult: Write/Manage TPN/PPN Consult to PICC Line RN [CONS] Routine Reason For Exam: TPN Type Line:: PICC 02/05/18 09:35 Physical Therapy Evaluation and Treat [CONS] Routine Comment: Reason For Exam: weakness and debility Primary care physician: SOUND PRINTER Hospitalization Reason for admission: recurrent nausea and vomiting, severe malnutrition Condition: Stable Pertinent studies: GES normal Abdomen and Pelvis CT CXR Hospital course: 72 year old female presented to the emergency department with complaints of nausea vomiting, abdominal pain and constipation. Patient had laparoscopic cholecystectomy 4-5 days before presentation. Patient has hypokalemia and hypomagnesemia; repleted and corrected accordingly. Patient has intractable Nausea and vomiting. EGD revealed Markedly abnormal mucosa in gastric antrum ( appeared nodular and adenomatous); cold bx taken. No evidence of gastric outlet obstruction. Path results show moderate active chronic gastritis w/ extensive intestinal metaplasia and vascular congestion but no malignancy or H. pylori. GES was normal. GI recommended to discharge with TPN and discussed with case management and nutrition; arranged and discharged home. Recommended to have EUS as an O/P and GI will see him as an O/P. Protein calorie malnutrition. Cont. TPN, advance diet as tolerated. patient discharged home in a stable condition. Disposition: - TO HOME OR SELFCARE Time spent for discharge: 32 minutes - Discharge Diagnoses (1) Constipation Status: Acute (2) Hypokalemia Status: Acute (3) Nausea and vomiting Status: Acute (4) Postoperative abdominal pain Status: Acute (5) Acute pancreatitis Status: Ruled-out Qualifiers: Pancreatitis type: biliary Acute pancreatitis complication: no infection or necrosis Qualified Code(s): K85.10 - Biliary acute pancreatitis without necrosis or infection (6) Severe protein-calorie malnutrition Status: Acute Core Measure Documentation - Palliative Care Palliative Care/ Comfort Measures: Not Applicable - Core Measures Any of the following diagnoses?: none Exam - Physical Exam Narrative exam: Not in cardiopulmonary distress. The patient is emaciated. Vital signs as documented. Head exam is unremarkable. No scleral icterus . Neck is without jugular venous distension, thyromegaly, or carotid bruits. Lungs are clear to auscultation. Cardiac exam reveals regular rate and Rhythm. First and second heart sounds normal. No murmurs, rubs or gallops. Abdominal exam reveals normal bowel sounds, no masses, no organomegaly and no aortic enlargement. Extremities are wasted. 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 No focal weakness. - Constitutional Vitals: Temp Pulse Resp BP Pulse Ox 97.7 F 75 16 105/60 96 02/06/18 07:43 02/06/18 10:00 02/06/18 07:43 02/06/18 07:43 02/06/18 10:00 Plan Activity: advance as tolerated Weight Bearing Status: Weight Bear as Tolerated Diet: per dietitian instruction, advance as tolerated, other (Continue TPN) Follow up with: SHERYL NOLEN MD [Staff Physician] - 7 Days PRIMARY CAREMD [Primary Care Provider] - 7 Days JAQUELINE MARIANO MD [Staff Physician] - 14 Days Prescriptions: Bisacodyl [Dulcolax suppos] 10 mg MA QDAY PRN #10 supp.rect PRN Reason: Constipation Famotidine [Pepcid] 20 mg PO BID #60 tablet Nitrofurantoin [place]/M-Cryst [Macrobid CAP] 100 mg PO Q12HR #9 capsule Ondansetron [Zofran ORAL LIQ] 4 mg PO Q4H PRN 5 Days #30 ml PRN Reason: Nausea Promethazine [Phenergan SUPPOS] 6.25 mg MA Q6H #10 supp.rect
--- NOTE | 2018-02-06 13:45 | Gastroenterology Progress Note ---
<ISRAEL AHUMADA - Last Filed: 02/06/18 13:39> Assessment and Plan 1. Intractable nausea/vomiting 2. Unintentional weight loss 3. Abnormal gastric mucosa in antrum/mass - r/o malignancy -path results non-diagnositc (shows moderate active chronic gastritis w/ extensive intestinal metaplasia and vascular congestion but no malignancy or H. pylori) -GES with normal results -clinically, patient is stable with abd pain improved but unable to tolerate advanced diet with an episode of N/V this am. -recommend patient be discharged home on TPN with follow up clinic appt and recommended outpatient EUS in [place] to r/o malignancy -continue supportive care Subjective Date of service: 02/06/18 Principal diagnosis: intractable nausea/vomiting, weight loss Interval history: No acute distress. Reports episode of N/V this am after only eating a few bites of food. Denies abd pain. Objective - Constitutional Vitals: Temp Pulse Resp BP Pulse Ox 97.7 F 75 16 105/60 96 02/06/18 07:43 02/06/18 10:00 02/06/18 07:43 02/06/18 07:43 02/06/18 10:00 General appearance: no acute distress, other (thin appearing) - Respiratory Respiratory: bilateral: CTA (anterior) - Cardiovascular Rhythm: regular Heart Sounds: Present: S1 & S2 - Gastrointestinal General gastrointestinal: Present: soft, non-tender, non-distended, normal bowel sounds - Labs CBC & Chem 7: 02/04/18 06:57 02/06/18 07:05 Labs: Laboratory Results - last 24 hr 02/06/18 07:05 Sodium 133 L Potassium 3.7 D Chloride 99.9 Carbon Dioxide 23 Anion Gap 14 BUN 15 Creatinine 0.2 L Estimated GFR > 60 BUN/Creatinine Ratio 75 Glucose 142 H Calcium 8.8 Phosphorus 3.20 D Magnesium 2.00 Total Bilirubin 0.40 AST 14 ALT 10 Alkaline Phosphatase 67 Total Protein 6.5 Albumin 3.5 L Albumin/Globulin Ratio 1.2 <JAQUELINE MARIANO - Last Filed: 02/06/18 16:26> Assessment and Plan Pt seen and examined. Agree with note above. Nutrition recommendations regarding home TPN needs. Plan for discharge tomorrow once nutrition plan is made and with outpatient EUS arrangements. Objective - Constitutional Vitals: Temp Pulse Resp BP Pulse Ox 97.2 F L 85 16 111/68 96 02/06/18 13:18 02/06/18 13:18 02/06/18 13:18 02/06/18 13:18 02/06/18 13:18 - Labs CBC & Chem 7: 02/04/18 06:57 02/06/18 07:05 Labs: Laboratory Results - last 24 hr 02/06/18 07:05 Sodium 133 L Potassium 3.7 D Chloride 99.9 Carbon Dioxide 23 Anion Gap 14 BUN 15 Creatinine 0.2 L Estimated GFR > 60 BUN/Creatinine Ratio 75 Glucose 142 H Calcium 8.8 Phosphorus 3.20 D Magnesium 2.00 Total Bilirubin 0.40 AST 14 ALT 10 Alkaline Phosphatase 67 Total Protein 6.5 Albumin 3.5 L Albumin/Globulin Ratio 1.2
[2018-02-07 07:19] LABS: Bacteria,Urine 1+ /HPF (Negative); Bilirubin,Urine NEG (Negative); Blood,Urine NEG (Negative); Color,Urine Yellow (Yellow); Mucus,Urine FEW /HPF; Protein,Urine <15 mg/dL mg/dL (Negative)
--- NOTE | 2018-02-07 07:20 | Progress Note ---
Assessment and Plan Assessment and plan: 72 year old female presented to the emergency department with complaints of nausea vomiting, abdominal pain and constipation. Patient had laparoscopic cholecystectomy 4-5 days before presentation. Hypokalemia - Repleted and corrected Hypomagnesemia - repleted and corrected Intractable Nausea and vomiting - EGD revealed Markedly abnormal mucosa in gastric antrum (appeared nodular and adenomatous); cold bx taken. No evidence of gastric outlet obstruction. - path results show moderate active chronic gastritis w/ extensive intestinal metaplasia and vascular congestion but no malignancy or H. pylori - GES was normal - GI recommended to discharge with TPN and I put a discharge order and patient didn't go - recommended to have EUS as an O/P Protein calorie malnutrition. - Cont. TPN, clear liquid diet - On Megace Postoperative abdominal pain - Abdominal pain has resolved. Management plans discussed with the daughter. Disposition - patient was discharged but didn't go. - Patient Problems (1) Constipation Current Visit: Yes Status: Acute (2) Hypokalemia Current Visit: Yes Status: Acute (3) Nausea and vomiting Current Visit: Yes Status: Acute (4) Postoperative abdominal pain Current Visit: Yes Status: Acute (5) Acute pancreatitis Current Visit: No Status: Acute Qualifiers: Pancreatitis type: biliary Acute pancreatitis complication: no infection or necrosis Qualified Code(s): K85.10 - Biliary acute pancreatitis without necrosis or infection History Interval history: Patient was seen and evaluated this morning, minimal abdominal pain, patient had nausea after her diet was advanced. Hospitalist Physical - Physical exam Narrative exam: Not in cardiopulmonary distress. The patient is emaciated. Vital signs as documented. Head exam is unremarkable. No scleral icterus . Neck is without jugular venous distension, thyromegaly, or carotid bruits. Lungs are clear to auscultation. Cardiac exam reveals regular rate and Rhythm. First and second heart sounds normal. No murmurs, rubs or gallops. Abdominal exam reveals normal bowel sounds, no masses, no organomegaly and no aortic enlargement. Extremities are wasted. 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 No focal weakness. - Constitutional Vitals: Temp Pulse Resp BP Pulse Ox 97.9 F 82 18 100/63 100 02/07/18 03:00 02/07/18 03:00 02/07/18 03:00 02/07/18 03:00 02/07/18 03:00 General appearance: Present: no acute distress, well-nourished Results - Labs CBC & Chem 7: 02/04/18 06:57 02/06/18 07:05 Labs: Laboratory Last Values WBC 6.6 K/mm3 (4.5-11.0) 02/04/18 06:57 RBC 4.46 M/mm3 (3.65-5.03) 02/04/18 06:57 Hgb 13.3 gm/dl (10.1-14.3) 02/04/18 06:57 Hct 40.0 % (30.3-42.9) 02/04/18 06:57 MCV 90 fl (79-97) 02/04/18 06:57 MCH 30 pg (28-32) 02/04/18 06:57 MCHC 33 % (30-34) 02/04/18 06:57 RDW 14.1 % (13.2-15.2) 02/04/18 06:57 Plt Count 298 K/mm3 (140-440) 02/04/18 06:57 Lymph % (Auto) 25.4 % (13.4-35.0) 02/04/18 06:57 Bartholomew % (Auto) 11.3 % (0.0-7.3) H 02/04/18 06:57 Eos % (Auto) 1.1 % (0.0-4.3) 02/04/18 06:57 Baso % (Auto) 0.4 % (0.0-1.8) 02/04/18 06:57 Lymph # 1.7 K/mm3 (1.2-5.4) 02/04/18 06:57 Bartholomew # 0.8 K/mm3 (0.0-0.8) 02/04/18 06:57 Eos # 0.1 K/mm3 (0.0-0.4) 02/04/18 06:57 Baso # 0.0 K/mm3 (0.0-0.1) 02/04/18 06:57 Seg Neutrophils % 61.8 % (40.0-70.0) 02/04/18 06:57 Seg Neutrophils # 4.1 K/mm3 (1.8-7.7) 02/04/18 06:57 Sodium 133 mmol/L (137-145) L 02/06/18 07:05 Potassium 3.7 mmol/L (3.6-5.0) D 02/06/18 07:05 Chloride 99.9 mmol/L (98-107) 02/06/18 07:05 Carbon Dioxide 23 mmol/L (22-30) 02/06/18 07:05 Anion Gap 14 mmol/L 02/06/18 07:05 BUN 15 mg/dL (7-17) 02/06/18 07:05 Creatinine 0.2 mg/dL (0.7-1.2) L 02/06/18 07:05 Estimated GFR > 60 ml/min 02/06/18 07:05 BUN/Creatinine Ratio 75 % 02/06/18 07:05 Glucose 142 mg/dL (65-100) H 02/06/18 07:05 POC Glucose 110 (70-105) H 02/05/18 07:32 Calcium 8.8 mg/dL (8.4-10.2) 02/06/18 07:05 Phosphorus 3.20 mg/dL (2.5-4.5) D 02/06/18 07:05 Magnesium 2.00 mg/dL (1.7-2.3) 02/06/18 07:05 Total Bilirubin 0.40 mg/dL (0.1-1.2) 02/06/18 07:05 AST 14 units/L (5-40) 02/06/18 07:05 ALT 10 units/L (7-56) 02/06/18 07:05 Alkaline Phosphatase 67 units/L (35-129) 02/06/18 07:05 Total Protein 6.5 g/dL (6.3-8.2) 02/06/18 07:05 Albumin 3.5 g/dL (3.9-5) L 02/06/18 07:05 Albumin/Globulin Ratio 1.2 % 02/06/18 07:05 Triglycerides 73 mg/dL (2-149) 02/05/18 07:47 Lipase 79 units/L (13-60) H 01/26/18 01:07 Urine Color Yellow (Yellow) 01/26/18 03:40 Urine Turbidity Clear (Clear) 01/26/18 03:40 Urine pH 6.0 (5.0-7.0) 01/26/18 03:40 Ur Specific [place] 1.038 (1.003-1.030) H 01/26/18 03:40 Urine Protein <15 mg/dl mg/dL (Negative) 01/26/18 03:40 Urine Glucose (UA) Neg mg/dL (Negative) 01/26/18 03:40 Urine Ketones 80 mg/dL (Negative) 01/26/18 03:40 Urine Blood Neg (Negative) 01/26/18 03:40 Urine Nitrite Neg (Negative) 01/26/18 03:40 Urine Bilirubin Neg (Negative) 01/26/18 03:40 Urine Urobilinogen 2.0 mg/dL (<2.0) 01/26/18 03:40 Ur Leukocyte Esterase Neg (Negative) 01/26/18 03:40 Urine WBC (Auto) 1.0 /HPF (0.0-6.0) 01/26/18 03:40 Urine RBC (Auto) 3.0 /HPF (0.0-6.0) 01/26/18 03:40 U Epithel Cells (Auto) 1.0 /HPF (0-13.0) 01/26/18 03:40 Urine Mucus 1+ /HPF 01/26/18 03:40
[2018-02-07] MEDS: PROTONIX IV SCH (09:13)
[2018-02-07] MEDS: HEPARIN SUB-Q SCH (09:15)
[2018-02-07] MEDS: MEGACE PO SCH (09:18)
--- NOTE | 2018-02-07 10:36 | Event Note ---
Date: 02/07/18 Routine f/u. Notes reviewed. Agree with GI plan. As patient is not a candidate for PEG placement due to need for further work-up, possibly surgery for gastric abnormality, TPN for now makes the most sense. Pt still not able to tolerate enough PO to meet nutritional needs.
[2018-02-07 11:28] LABS: BUN/Creatinine Ratio 40; Blood Urea Nitrogen 12 mg/dL (7-17); Calcium 9.5 mg/dL (8.4-10.2); Hemolysis Index 9
--- NOTE | 2018-02-07 11:48 | Gastroenterology Progress Note ---
Assessment and Plan 1. Abnormal gastric mucosa/mass - non-diagnostic path but concern for malignancy. will need outpatient EUS after discharge. have pt follow-up in GI clinic in 1 week after discharge 2. Nausea/vomiting - likely from mass, although no obstruction on endoscopy. PEG tube unlikely to benefit as feedings would still be proximal to antral lesion. recommend TPN for supplemental purposes as outpatient; may eventually need surgical J tube once diagnosis and management plans are determined. Okay to discharge from Gi stand point. please give gi clinic information to pt for her to f/u and will arrange for outpatient EUS in 1-2 weeks. Subjective Date of service: 02/07/18 Principal diagnosis: intractable nausea/vomiting, weight loss Interval history: pt seen and examined. tolerating soup from home. no n/v overnight or this morning. Objective - Exam Narrative Exam: Gen: thin female, resting comfortably CV: RRR Lungs: CTAB Abd: nt, nd, +bs - Constitutional Vitals: Temp Pulse Resp BP Pulse Ox 98.0 F 82 18 116/55 95 02/07/18 07:29 02/07/18 07:29 02/07/18 07:29 02/07/18 07:29 02/07/18 07:29 - Labs CBC & Chem 7: 02/04/18 06:57 02/07/18 10:41 Labs: Laboratory Results - last 24 hr 02/07/18 02/07/18 07:05 10:41 Sodium 132 L Potassium 3.7 Chloride 97.0 L Carbon Dioxide 23 Anion Gap 16 BUN 12 Creatinine 0.3 L Estimated GFR > 60 BUN/Creatinine Ratio 40 Glucose 90 Calcium 9.5 Phosphorus 3.30 Magnesium 1.90 Urine Color Yellow Urine Turbidity Slightly-cloudy Urine pH 6.0 Ur Specific [place] 1.013 Urine Protein <15 mg/dl Urine Glucose (UA) Neg Urine Ketones Neg Urine Blood Neg Urine Nitrite Neg Urine Bilirubin Neg Urine Urobilinogen 2.0 Ur Leukocyte Esterase Mod Urine WBC (Auto) 8.0 H Urine RBC (Auto) 1.0 U Epithel Cells (Auto) 1.0 Urine Bacteria (Auto) 1+ Urine Mucus Few
[2018-02-07] MEDS ORDERED: MACROBID PO SCH (14:00)
[2018-02-07 15:57] VITALS: BP 115/63
== END 2018-02-07 16:35 | disposition home health service (06) | DRG 391 ==
LOC: ED 00:20 → SUATTDRO 00:20 → 2B-ACE 06:50
PROVIDERS: ADMIT Internal Medicine; ATTEND Internal Medicine
PROC: 0DB68ZX Excision of Stomach, Via Natural or Artificial Opening Endoscopic, Diagnostic (ICD-10-PCS; 2018-01-31)
PROC: 02HV33Z Insertion of Infusion Device into Superior Vena Cava, Percutaneous Approach (ICD-10-PCS; principal; 2018-02-03)
PROC: 3E0436Z Introduction of Nutritional Substance into Central Vein, Percutaneous Approach (ICD-10-PCS; 2018-02-03)
DX: K29.60 Other gastritis without bleeding (principal); E41 Nutritional marasmus; Z68.1 Body mass index [BMI] 19.9 or less, adult; E87.6 Hypokalemia; E86.0 Dehydration; K59.00 Constipation, unspecified; G89.18 Other acute postprocedural pain; R10.9 Unspecified abdominal pain; K21.9 Gastro-esophageal reflux disease without esophagitis; E83.42 Hypomagnesemia; Z90.49 Acquired absence of other specified parts of digestive tract
CPT/HCPCS: 36415; 71045; 71046; 74177; 78264; 80048; 80053; 81001; 82962; 83690; 83735; 84100; 84132; 84478; 85025; 85027; 88305; 88342; 96361; 96365; 96375; A9541; C9113; G8978-GP; G8980-GP; J1644; J2405; J2704; J2765; J3475; J3480; J7030; Q0169; Q9967